=== PATIENT | female | born 1990 | race Caucasian/White ===

== ENCOUNTER 2016-08-17 18:56 | Emergency (ER) | payer OTHER ==
[~2016-08-17] VITALS: Ht 149.9 cm; Wt 63.7 kg
[~2016-08-17 18:56] MED LIST: ACET-1256 PO; ETON1IMP2 INTRAD; IBUP-1050 PO
[2016-08-17 19:00] VITALS: TEMP 37.4; Ht 149.9 cm; Wt 63.7 kg
[2016-08-17] MEDS ORDERED: MoRPHine SULFATE 4 MG/ML 1 ML CARP\\VIAL IV STA (19:16)
[2016-08-17] MEDS ORDERED: SODIUM CHLORIDE 0.9% 1000ML 1,000 ML IV STA (19:16)
[2016-08-17] MEDS ORDERED: ANTI-INFLAMMATORY PO (19:41)
[2016-08-17 19:56] LABS: BASO % 0.5 %; BASO ABS # 0.03 K/uL (0-0.2); COMPLETE YES; EOS % 4.6 %; HEMATOCRIT 38.8 % (37-47); IG% 0.2 %; LYMPH ABS # 1.59 K/uL (1.2-3.4); MEAN CELL VOLUME 86.6 fL (80-100); MEAN CORPUSCULAR HEMOGLOBIN 30.4 pg (25-34); MEAN CORPUSCULAR HGB CONC 35.1 g/dl (32-36); MONO % 9.8 %; NEUT % 57.9 %; PLATELET COUNT 189 K/uL (130-400); RED BLOOD COUNT 4.48 M/uL (4.2-5.4); WHITE BLOOD COUNT 5.89 K/uL (4.8-10.8)
[2016-08-17 19:57] LABS: URINE APPEARANCE CLEAR (CLEAR); URINE BILIRUBIN NEG (NEG); URINE COLOR YELLOW; URINE EPITHELIAL CELL AUTO >30 /lpf (0-5); URINE NITRITE NEG (NEG); URINE SPECIFIC GRAVITY 1.025 (1.000-1.030); UROBILINOGEN NEG (NEG); ZZUR CULT IF INDIC CLEAN CATCH YES
[2016-08-17 20:05] LABS: BUN/CREATININE RATIO 19.4 (10-20); CALCIUM 8.6 mg/dl (8.5-10.1); CREATININE 0.65 mg/dl (0.60-1.20); POTASSIUM 3.9 mmol/L (3.5-5.1)
--- NOTE | 2016-08-17 20:09 | DIAGNOSTIC IMAGING REPORT ---
KUB HISTORY: left flank pain, hx stones COMPARISON: KUB 12/02/2014. Abdomen and pelvis CT 11/26/2014. FINDINGS: The bowel gas pattern is unremarkable. There are no dilated loops of small bowel to suggest an obstruction. There is a punctate stone within the kidneys bilaterally. No left ureteral calculi identified. Calcifications in the deep pelvis likely represent phleboliths. There is a new punctate stone within the right deep pelvis. No pneumoperitoneum or pneumatosis. IMPRESSION: 1. Bilateral nephrolithiasis. 2. No left ureteral calculi. 3. There is a new punctate calcification within the right deep pelvis. This favors a phlebolith rather than a distal right ureteral stone given the patient's history of left flank pain. Electronically signed by: Oc Mcdonald M.D. 08/17/2016 8:07 PM Dictated Date/Time: 08/17/2016 8:04 PM
[2016-08-17 20:10] LABS: MANUAL MICROSCOPIC REQUIRED? NO; REVIEW REQ? YES
--- NOTE | 2016-08-17 20:22 | DIAGNOSTIC IMAGING REPORT ---
RENAL ULTRASOUND HISTORY: left flank pain, hx stones COMPARISON: None. FINDINGS: Right kidney: 10.6 cm. No hydronephrosis. Normal corticomedullary differentiation and cortical thickness. The tip of the lower pole is obscured by overlying bowel gas. Left kidney: 9.6 cm. No hydronephrosis. Normal corticomedullary differentiation and cortical thickness. Bladder: Not well distended. No definite bladder wall thickening. The ureteral jets are not identified. IMPRESSION: No hydronephrosis. Electronically signed by: Oc Mcdonald M.D. 08/17/2016 8:20 PM Dictated Date/Time: 08/17/2016 8:19 PM
[2016-08-17 20:23] LABS: ALB/GLOB RATIO 1.1 (0.9-2)
[2016-08-17 20:29] LABS: URINE MUCUS PRESENT (NONE PRSENT)
[2016-08-17] MEDS ORDERED: NORCO 5/325MG HOME PACK ONE (20:40)
[2016-08-17] MEDS ORDERED: HYDR-5688 PO (20:47)
--- NOTE | 2016-08-17 20:49 | EMERGENCY ROOM VISIT NOTE ---
History First contact with patient: 19:03 Chief Complaint: FLANK PAIN Stated Complaint: SEVERE KIDNEY PAIN/LOWER BACK History of Present Illness The patient is a 26 year old female who presents to the Emergency Room with complaints of left-sided flank pain. The patient reports that she has had pain in her left back in the area of her kidney. This has been ongoing for the past 2 days. She states that she "feels like her kidney is going to pop out." She states the pain is constant and sharp in nature. She has a history of kidney stones greater than 1 year ago. In feels this may be similar, but she is unsure. She denies any associated urinary symptoms, nausea, vomiting, chest pain or shortness of breath. She has not been taking anything at home for the pain. She rates her discomfort an 8/10. Review of Systems A complete 10-point Review of Systems was discussed with the patient, with pertinent positives and negatives listed in the History of Present Illness. All remaining Review of Systems questions can be considered negative unless otherwise specified. Past Medical/Surgical History Medical Problems: (1) 2 (2) No chronic diseases present Family History Cancer Diabetes mellitus Heart disease Hypertension Kidney disease Kidney stones Social History Smoking Status: Former Smoker Alcohol Use: none Drug Use: none Marital Status: in relationship Housing Status: lives with significant other Occupation Status: employed Current/Historical Medications Scheduled PRN Hydrocodone/Acetaminophen 5MG/325MG ([place] 5MG/325MG), 1-2 TABLET PO Q4H PRN for Pain [Anti-Inflammatory], 1 TAB PO DAILY PRN for PRN Allergies Coded Allergies: Penicillins (Verified Allergy, Unknown, ., 08/17/16) Physical Exam Vital Signs Date Time Temp Pulse Resp B/P Pulse Ox O2 Delivery O2 Flow Rate FiO2 08/17/16 20:55 84 16 98/68 98 08/17/16 19:00 37.4 111 16 129/87 99 Room Air Physical Exam VITALS: Vitals are noted on the nurse's note and reviewed by myself. Vital signs stable. GENERAL: This is a 26-year-old female, in no acute distress, nondiaphoretic, well-developed well-nourished. SKIN: Capillary reflex less than 2 seconds. HEART: Regular rate and rhythm without murmurs gallops or rubs. LUNGS: Clear to auscultation bilaterally without wheezes, rales or rhonchi. ABDOMEN: Soft, nontender, no masses or organomegaly. MUSCULOSKELETAL: Mild left CVA tenderness. NEURO: Patient was alert and oriented to person place and time. Medical Decision & Procedures ER Provider Diagnostic Interpretation: KUB IMPRESSION: 1. Bilateral nephrolithiasis. 2. No left ureteral calculi. 3. There is a new punctate calcification within the right deep pelvis. This favors a phlebolith rather than a distal right ureteral stone given the patient's history of left flank pain. RENAL ULTRASOUND IMPRESSION: No hydronephrosis. Laboratory Results 08/17/16 19:25 Red Blood Count 4.48, Mean Corpuscular Volume 86.6, Mean Corpuscular Hemoglobin 30.4, Mean Corpuscular Hemoglobin Concent 35.1, Mean Platelet Volume 11.0, Neutrophils (%) (Auto) 57.9, Lymphocytes (%) (Auto) 27.0, Monocytes (%) (Auto) 9.8, Eosinophils (%) (Auto) 4.6, Basophils (%) (Auto) 0.5, Neutrophils # (Auto) 3.41, Lymphocytes # (Auto) 1.59, Monocytes # (Auto) 0.58, Eosinophils # (Auto) 0.27, Basophils # (Auto) 0.03 08/17/16 19:25 Test 08/17/16 19:25 White Blood Count 5.89 K/uL (4.8-10.8) Red Blood Count 4.48 M/uL (4.2-5.4) Hemoglobin 13.6 g/dL (12.0-16.0) Hematocrit 38.8 % (37-47) Mean Corpuscular Volume 86.6 fL (80-100) Mean Corpuscular Hemoglobin 30.4 pg (25-34) Mean Corpuscular Hemoglobin Concent 35.1 g/dl (32-36) Platelet Count 189 K/uL (130-400) Mean Platelet Volume 11.0 fL (7.4-10.4) Neutrophils (%) (Auto) 57.9 % Lymphocytes (%) (Auto) 27.0 % Monocytes (%) (Auto) 9.8 % Eosinophils (%) (Auto) 4.6 % Basophils (%) (Auto) 0.5 % Neutrophils # (Auto) 3.41 K/uL (1.4-6.5) Lymphocytes # (Auto) 1.59 K/uL (1.2-3.4) Monocytes # (Auto) 0.58 K/uL (0.11-0.59) Eosinophils # (Auto) 0.27 K/uL (0-0.5) Basophils # (Auto) 0.03 K/uL (0-0.2) RDW Standard Deviation 40.4 fL (36.4-46.3) RDW Coefficient of Variation 12.6 % (11.5-14.5) Immature Granulocyte % (Auto) 0.2 % Immature Granulocyte # (Auto) 0.01 K/uL (0.00-0.02) Urine Color YELLOW Urine Appearance CLEAR (CLEAR) Urine pH 7.0 (4.5-7.5) Urine Specific [place] 1.025 (1.000-1.030) Urine Protein NEG (NEG) Urine Glucose (UA) NEG (NEG) Urine Ketones NEG (NEG) Urine Occult Blood NEG (NEG) Urine Nitrite NEG (NEG) Urine Bilirubin NEG (NEG) Urine Urobilinogen NEG (NEG) Urine Leukocyte Esterase MODERATE (NEG) Urine WBC (Auto) 5-10 /hpf (0-5) Urine RBC (Auto) 5-10 /hpf (0-4) Urine Hyaline Casts (Auto) 1-5 /lpf (0-5) Urine Epithelial Cells (Auto) >30 /lpf (0-5) Urine Bacteria (Auto) 1+ (NEG) Urine Renal Epithelial Cells /lpf (0-5) Urine Mucus PRESENT (NONE PRSENT) Urine Test NEG (NEG) Anion Gap 8.0 mmol/L (3-11) Est Creatinine Clear Calc Drug Dose 105.5 ml/min Estimated GFR () 141.0 Estimated GFR (Non- 121.7 BUN/Creatinine Ratio 19.4 (10-20) Calcium Level 8.6 mg/dl (8.5-10.1) Total Bilirubin 0.5 mg/dl (0.2-1) Aspartate Amino Transf (AST/SGOT) 14 U/L (15-37) Alanine Aminotransferase (ALT/SGPT) 20 U/L (12-78) Alkaline Phosphatase 77 U/L (45-117) Total Protein 6.8 gm/dl (6.4-8.2) Albumin 3.6 gm/dl (3.4-5.0) Globulin 3.2 gm/dl (2.5-4.0) Albumin/Globulin Ratio 1.1 (0.9-2) Medications Administered Medications (Trade) Dose Ordered Sig/Denilson Route Start Time Stop Time Status Last Admin Dose Admin Sodium Chloride (Nss 1000ml) 1,000 ml @ 999 mls/hr Q1H1M STAT IV 08/17/16 19:16 08/17/16 20:16 DC 08/17/16 19:34 999 MLS/HR Morphine Sulfate (MoRPHine SULFATE INJ) 4 mg NOW STAT IV 08/17/16 19:16 08/17/16 19:17 DC 08/17/16 19:35 4 MG Acetaminophen/ Hydrocodone Bitart ([place] 5/325mg Home Pack) 1 homepack [employer] ONCE .ROUTE 08/17/16 20:40 08/17/16 20:41 DC 08/17/16 21:00 1 HOMEPACK Medical Decision Differential diagnosis includes renal calculus, pyelonephritis, feels: Pain, gastroenteritis, colitis, among others. The patient was evaluated as above. Labs were drawn and IV access was obtained. Imaging studies were performed and read by radiology as above. The patient was medicated with 4 mg morphine IV for pain. The patient was reassessed multiple times during their stay in the emergency department and remained in stable condition. The patient is a 26-year-old female who presents today complaining of left flank pain. Labs revealed no leukocytosis, anemia or concerning electrolyte abnormality. Urinalysis was suggestive of infection versus contamination. Urine was negative. Ultrasound and KUB were negative for any presence of stones. I feel the patient's pain is most likely musculoskeletal. Her urinalysis was adjusted of contamination and certainly does not appear to be consistent with pyelonephritis. This will be sent for culture. The patient was given a short course of pain medication. She will return for worsening symptoms. Otherwise, she will follow-up with her primary care provider. Based on the patient's presentation, lab results, and imaging studies, I feel the patient is stable for outpatient treatment. Discharge instructions were reviewed with the patient. The patient verbalized understanding of my assessment and treatment plan and was discharged home in good condition. [place] Drug Monitoring Program Search Results: patient reviewed within database, no issues identified Impression Primary Impression: Left flank pain Departure Information Dispostion Home / Self-Care Condition GOOD Prescriptions Hydrocodone/Acetaminophen 5MG/325MG ([place] 5MG/325MG) Tab 1-2 TABLET PO Q4H Y for Pain, #12 TAB For Initial Treatment Prov: Carmita Kirby PA-C 08/17/16 Referrals Cl Connors M.D. (PCP) Patient Instructions My [facility] Additional Instructions You have been treated in the Emergency Department for Back Pain. You have received pain medicine in the emergency department which impairs your ability to operate a vehicle. It is illegal for you to drive after receiving these medicines. You have been prescribed [place] to be used for pain control. This is a narcotic medication. You cannot drive or consume alcohol while on this medicine. This medicine should only be used for pain that cannot be controlled with over-the- counter pain medicines. For pain control, you can use the following [id number] medicines (if >12 yo): - Regular strength (325mg/tab) Tylenol (acetaminophen) 2 tabs every 4-6 hours as needed. Do not exceed 12 tablets in a 24 hour period. Avoid taking more than 4 grams (4000 mg) of Tylenol per day. This includes any other sources of acetaminophen you may take on a regular basis. - Regular strength (200 mg/tab) Advil (ibuprofen) 1-2 tabs every 4-6 hours as needed. Do not exceed a dose of 3200 mg per day. You may apply a heating pad to the area of discomfort. You should follow-up with your primary care provider within one week for further evaluation of these symptoms. Return to the Emergency Department if your current symptoms worsen despite treatment course outlined above, or if you develop any new/concerning symptoms.
[2016-08-17 20:55] VITALS: BP 98/68; PULSE 84; O2SAT 98
== END 2016-08-17 21:04 | disposition home or self-care (01) ==
LOC: C.EDB 18:57
DX: R10.9 Unspecified abdominal pain (principal); N20.0 Calculus of kidney; Z87.891 Personal history of nicotine dependence; Z83.3 Family history of diabetes mellitus; Z82.49 Family history of ischemic heart disease and other diseases of the circulatory system; Z84.1 Family history of disorders of kidney and ureter; Z79.1 Long term (current) use of non-steroidal anti-inflammatories (NSAID)

== ENCOUNTER 2017-08-24 12:53 | Emergency (ER) | payer SELFPAY ==
[~2017-08-24] VITALS: Ht 149.9 cm; Wt 70.0 kg
[~2017-08-24 12:53] MED LIST changes: -ACET-1256 PO; +ANTI-INFLAMMATORY PO; -ETON1IMP2 INTRAD; -IBUP-1050 PO
[2017-08-24 12:57] VITALS: TEMP 36.8; Ht 149.9 cm; Wt 70.0 kg
[2017-08-24] MEDS ORDERED: SODIUM CHLORIDE 0.9% 1000ML 1,000 ML IV STA (13:28)
[2017-08-24] MEDS ORDERED: MoRPHine SULFATE 4 MG/ML 1 ML CARP\\VIAL IV STA (13:35)
[2017-08-24] MEDS ORDERED: ONDANSETRON INJ 2 MG/ML 2 ML VIAL IV STA ×2 (13:35→17:04)
[2017-08-24 13:50] LABS: BASO % 0.5 %; BASO ABS # 0.05 K/uL (0-0.2); EOS % 3.5 %; EOS ABS # 0.36 K/uL (0-0.5); HEMATOCRIT 43.2 % (37-47); HEMOGLOBIN 14.9 g/dL (12.0-16.0); IG# 0.02 K/uL (0.00-0.02); LYMPH % 28.7 %; LYMPH ABS # 2.94 K/uL (1.2-3.4); MEAN CELL VOLUME 89.6 fL (80-100); MEAN CORPUSCULAR HEMOGLOBIN 30.9 pg (25-34); MEAN CORPUSCULAR HGB CONC 34.5 g/dl (32-36); MEAN PLATELET VOLUME 10.4 fL (7.4-10.4); MONO % 5.7 %; MONO ABS # 0.58 K/uL (0.11-0.59); NEUT % 61.4 %; PLATELET COUNT 224 K/uL (130-400); RED CELL DISTRIBUTION WIDTH CV 12.2 % (11.5-14.5); RED CELL DISTRIBUTION WIDTH SD 39.8 fL (36.4-46.3); WHITE BLOOD COUNT 10.25 K/uL (4.8-10.8)
[2017-08-24 14:02] VITALS: O2SAT 100
[2017-08-24 14:07] LABS: ALBUMIN 4.3 gm/dl (3.4-5.0); ALT/SGPT 25 U/L (12-78); AST/SGOT 16 U/L (15-37); BLOOD UREA NITROGEN 12 mg/dl (7-18); CALCIUM 9.2 mg/dl (8.5-10.1); CARBON DIOXIDE 31 mmol/L (21-32); CREATININE 0.62 mg/dl (0.60-1.20); GLUCOSE 80 mg/dl (70-99); LIPASE 124 U/L (73-393); POTASSIUM 3.2 mmol/L (3.5-5.1); SODIUM 136 mmol/L (136-145)
[2017-08-24 14:09] LABS: ALKALINE PHOSPHATASE 85 U/L (45-117); TOTAL PROTEIN 8.5 gm/dl (6.4-8.2)
--- NOTE | 2017-08-24 15:05 | DIAGNOSTIC IMAGING REPORT ---
ULTRASOUND RIGHT UPPER QUADRANT ABDOMEN CLINICAL HISTORY: Right upper quadrant abdominal pain. COMPARISON STUDY: Abdominal CT dated 11/26/2014. TECHNIQUE: Real-time, grayscale, and color flow sonography of the right upper quadrant of the abdomen was performed. Images are reviewed in the transverse and longitudinal planes. FINDINGS: Liver: The liver is normal in size and echotexture. There is no intrahepatic biliary ductal dilatation. The main portal vein is patent. Gallbladder: The gallbladder is normal in appearance. No gallstones are identified. There is no gallbladder wall thickening or pericholecystic fluid. A sonographic Whiting's sign is reportedly absent. The common bile duct measures up to 0.5 cm in diameter. Pancreas: Visualized portions of the pancreatic head and body are normal in appearance. Right kidney: Survey images of the right kidney demonstrate normal size and echotexture. There is no hydronephrosis. Ascites: None. IMPRESSION: Unremarkable sonographic assessment of the right upper quadrant. No gallstones are identified. Electronically signed by: Kenyon Allen M.D. 08/24/2017 3:04 PM Dictated Date/Time: 08/24/2017 3:03 PM
--- NOTE | 2017-08-24 15:14 | EMERGENCY ROOM VISIT NOTE ---
History First contact with patient: 13:25 Chief Complaint: ABDOMINAL PAIN Stated Complaint: SEVERE RUQ PAIN, DISCOLORED STOOL, FEVER, VOMITING History of Present Illness The patient is a 27 year old female who presents to the Emergency Room via private vehicle accompanied by mother and refer by family doctor with complaints of "severe right upper quadrant pain, discolored stool, fever, vomiting". The patient was asked to us today with postprandial right upper quadrant abdominal pain that began earlier this week. She states that after she eats food she developed right upper quadrant abdominal pain followed by emesis. This is of new onset. She also notes clear-colored stools. Her last fever was on Monday and was 102.8F. She states that she was seen and her family doctor's office today and referred here. Review of Systems A complete 10-point Review of Systems was discussed with the patient, with pertinent positives and negatives listed in the History of Present Illness. All remaining Review of Systems questions can be considered negative unless otherwise specified. Past Medical/Surgical History Medical Problems: (1) 2 (2) No chronic diseases present Family History Cancer Diabetes mellitus Heart disease Hypertension Kidney disease Kidney stones Social History Smoking Status: Current Every Day Smoker Alcohol Use: none Drug Use: none Marital Status: in relationship Housing Status: lives with significant other Occupation Status: employed Current/Historical Medications Scheduled Citalopram Hydrobromide (Celexa), 1 TAB PO DAILY Omeprazole (Omeprazole), 2 TAB PO DAILY Ondasetron Odt (Zofran Odt), 4 MG SL Q6H Scheduled PRN [id number]-[id number]-Ro (Vicks Nyquil Cold & Flu), 1 DOSE PO HS PRN for COLD, SLEEP Oxycodone Ir (Roxicodone Ir), 1-2 TAB PO Q4H PRN for Pain Physical Exam Vital Signs Date Time Temp Pulse Resp B/P (MAP) Pulse Ox O2 Delivery O2 Flow Rate FiO2 08/24/17 18:38 69 16 104/61 100 08/24/17 17:09 72 18 106/58 98 Room Air 08/24/17 15:41 74 18 113/70 99 Room Air 08/24/17 14:06 100 08/24/17 14:04 94 16 103/66 98 Room Air 08/24/17 14:02 100 Room Air 08/24/17 12:57 36.8 96 20 135/81 100 Room Air Physical Exam VITAL SIGNS - Vital signs and nursing notes were reviewed. Stable. Afebrile. GENERAL -27-year-old female appearing her stated age who is in no acute distress. Communicates well with provider and answers questions appropriately. SKIN - Without rashes. No petechial or meningeal rash. HEAD - NC/AT. EYES - Sclera anicteric. EARS - No deformities of external structures noted on gross examination bilaterally. External auditory canals without discharge or otorrhea. Tympanic membranes pearly duffy without retraction or bulging. No fluid or purulent material visualized behind the TM. Handle of malleus, umbo, cone of light, pars tensa/flaccid all easily visualized. NOSE - Midline and without cyanosis. No epistaxis or purulent drainage noted. MOUTH/OROPHARYNX - Without perioral cyanosis. LUNGS - Chest wall symmetric without accessory muscle use, intercostals retractions, or central cyanosis. Normal vesicular breath sounds CTA B/L. No wheezes, rales, or rhonchi appreciated. CARDIAC - RRR with S1/S2. No murmur, rubs, or gallops appreciated. ABDOMEN - Abdominal contour normal without pulsations or visible masses. BS normoactive all four quadrants. There is right upper quadrant tenderness without positive Whiting sign. No palpable masses, hepatosplenomegaly, or ascites noted. Medical Decision & Procedures ER Provider Diagnostic Interpretation: ULTRASOUND RIGHT UPPER QUADRANT ABDOMEN CLINICAL HISTORY: Right upper quadrant abdominal pain. COMPARISON STUDY: Abdominal CT dated 11/26/2014. TECHNIQUE: Real-time, grayscale, and color flow sonography of the right upper quadrant of the abdomen was performed. Images are reviewed in the transverse and longitudinal planes. FINDINGS: Liver: The liver is normal in size and echotexture. There is no intrahepatic biliary ductal dilatation. The main portal vein is patent. Gallbladder: The gallbladder is normal in appearance. No gallstones are identified. There is no gallbladder wall thickening or pericholecystic fluid. A sonographic Whiting's sign is reportedly absent. The common bile duct measures up to 0.5 cm in diameter. Pancreas: Visualized portions of the pancreatic head and body are normal in appearance. Right kidney: Survey images of the right kidney demonstrate normal size and echotexture. There is no hydronephrosis. Ascites: None. IMPRESSION: Unremarkable sonographic assessment of the right upper quadrant. No gallstones are identified. Electronically signed by: Kenyon Allen M.D. 08/24/2017 3:04 PM Dictated Date/Time: 08/24/2017 3:03 PM Laboratory Results 08/24/17 13:30 Red Blood Count 4.82, Mean Corpuscular Volume 89.6, Mean Corpuscular Hemoglobin 30.9, Mean Corpuscular Hemoglobin Concent 34.5, Mean Platelet Volume 10.4, Neutrophils (%) (Auto) 61.4, Lymphocytes (%) (Auto) 28.7, Monocytes (%) (Auto) 5.7, Eosinophils (%) (Auto) 3.5, Basophils (%) (Auto) 0.5, Neutrophils # (Auto) 6.30, Lymphocytes # (Auto) 2.94, Monocytes # (Auto) 0.58, Eosinophils # (Auto) 0.36, Basophils # (Auto) 0.05 08/24/17 13:30 Test 08/24/17 13:25 08/24/17 13:30 Urine Color YELLOW Urine Appearance CLEAR (CLEAR) Urine pH 8.0 (4.5-7.5) Urine Specific [place] 1.013 (1.000-1.030) Urine Protein NEG (NEG) Urine Glucose (UA) NEG (NEG) Urine Ketones NEG (NEG) Urine Occult Blood NEG (NEG) Urine Nitrite NEG (NEG) Urine Bilirubin NEG (NEG) Urine Urobilinogen NEG (NEG) Urine Leukocyte Esterase TRACE (NEG) Urine WBC (Auto) 1-5 /hpf (0-5) Urine RBC (Auto) 0-4 /hpf (0-4) Urine Hyaline Casts (Auto) 0 /lpf (0-5) Urine Epithelial Cells (Auto) >30 /lpf (0-5) Urine Bacteria (Auto) NEG (NEG) Urine Test NEG (NEG) White Blood Count 10.25 K/uL (4.8-10.8) Red Blood Count 4.82 M/uL (4.2-5.4) Hemoglobin 14.9 g/dL (12.0-16.0) Hematocrit 43.2 % (37-47) Mean Corpuscular Volume 89.6 fL (80-100) Mean Corpuscular Hemoglobin 30.9 pg (25-34) Mean Corpuscular Hemoglobin Concent 34.5 g/dl (32-36) Platelet Count 224 K/uL (130-400) Mean Platelet Volume 10.4 fL (7.4-10.4) Neutrophils (%) (Auto) 61.4 % Lymphocytes (%) (Auto) 28.7 % Monocytes (%) (Auto) 5.7 % Eosinophils (%) (Auto) 3.5 % Basophils (%) (Auto) 0.5 % Neutrophils # (Auto) 6.30 K/uL (1.4-6.5) Lymphocytes # (Auto) 2.94 K/uL (1.2-3.4) Monocytes # (Auto) 0.58 K/uL (0.11-0.59) Eosinophils # (Auto) 0.36 K/uL (0-0.5) Basophils # (Auto) 0.05 K/uL (0-0.2) RDW Standard Deviation 39.8 fL (36.4-46.3) RDW Coefficient of Variation 12.2 % (11.5-14.5) Immature Granulocyte % (Auto) 0.2 % Immature Granulocyte # (Auto) 0.02 K/uL (0.00-0.02) Anion Gap 3.0 mmol/L (3-11) Est Creatinine Clear Calc Drug Dose 115.0 ml/min Estimated GFR () 142.2 Estimated GFR (Non- 122.7 BUN/Creatinine Ratio 19.1 (10-20) Calcium Level 9.2 mg/dl (8.5-10.1) Magnesium Level 2.1 mg/dl (1.8-2.4) Total Bilirubin 0.5 mg/dl (0.2-1) Direct Bilirubin < 0.1 mg/dl (0-0.2) Aspartate Amino Transf (AST/SGOT) 16 U/L (15-37) Alanine Aminotransferase (ALT/SGPT) 25 U/L (12-78) Alkaline Phosphatase 85 U/L (45-117) Total Protein 8.5 gm/dl (6.4-8.2) Albumin 4.3 gm/dl (3.4-5.0) Lipase 124 U/L (73-393) Medications Administered Medications (Trade) Dose Ordered Sig/Denilson Route Start Time Stop Time Status Last Admin Dose Admin Sodium Chloride 1,000 ml @ 999 mls/hr Q1H1M STAT IV 08/24/17 13:28 08/24/17 14:28 DC 08/24/17 13:58 999 MLS/HR Morphine Sulfate (MoRPHine SULFATE INJ) 4 mg NOW STAT IV 08/24/17 13:35 08/24/17 13:36 DC 08/24/17 13:59 4 MG Ondansetron HCl (Zofran Inj) 4 mg NOW STAT IV 08/24/17 13:35 08/24/17 13:36 DC 08/24/17 13:59 4 MG Ondansetron HCl (Zofran Inj) 4 mg NOW STAT IV 08/24/17 17:04 08/24/17 17:05 DC 08/24/17 17:10 4 MG Acetaminophen (Tylenol Tab) 500 mg NOW STAT PO 08/24/17 17:04 08/24/17 17:05 DC 08/24/17 17:10 500 MG Medical Decision Patient was seen and evaluated as above. She presents to us today with right upper quadrant abdominal pain that is worse after eating. She is nontoxic on exam. There is right upper quadrant abdominal tenderness upon my examination. Her history certainly is concerning for that of gallbladder etiology. IV access was initiated, and the above workup was performed. She was given morphine and Zofran for pain and nausea. CBC completely normal. Metabolic panel reveals potassium low at 3.2. No evidence of kidney or liver failure. Protein slightly high at 8.5. Urinalysis reveals high pH, trace leukocytes and greater than 30 epithelial cells. Urine test is negative. Gallbladder ultrasound normal. I suspect she is likely experiencing biliary colic, but also could be experiencing reflux. The patient appears well to be managed in the outpatient setting given her negative workup here and I do recommend a HIDA scan. Because it's towards the end of the week, and the patient's amount of pain I thought that perhaps obtaining this sooner rather than later in the outpatient setting would be warranted the patient did attempt to contact her family doctor. This was without success. I then discussed the case with our GI specialist here, Dr. García. He recommended beginning a PPI such as omeprazole 40 mg daily, and then have the patient follow-up in 2 weeks. If she is not feeling any better and upper endoscopy is recommended. I discussed medical versus risk of obtaining HIDA scan with him, and it appears that this is perhaps not the best test at this time. The patient did undergo a by mouth fluid trial here, and after another round of Zofran for nausea and was able tolerate by mouth fluid as well as food. She will be discharged home with a short course of Zofran, oxycodone, and omeprazole. It is important to note that in regard to the QT prolonging medications that she is not currently taking the Celexa of which she notes she is prescribed. I did talk with her about the QT prolongation risk. She was educated upon management, educated upon worrisome symptoms in which to return, was thoroughly invited back to the emergency department for symptoms persist or worsen, and was discharged home in good condition. There are no red flags identified and the [place] drug monitoring system. In the evaluation and treatment of this patient the following differential diagnoses were entertained: Biliary colic, acute cholecystitis, ascending cholangitis, gastritis, acid reflux, gastric ulcer, among others. Impression Primary Impression: Right upper quadrant abdominal pain Additional Impression: Hypokalemia Departure Information Dispostion Home / Self-Care Condition GOOD Prescriptions Omeprazole (OMEPRAZOLE) 20 Mg Tab 2 TAB PO DAILY for 30 Days, #60 TAB 1 Refill Prov: oTbin Mehta PA-C 08/24/17 Oxycodone Ir (Roxicodone Ir) 5 Mg Tab 1-2 TAB PO Q4H Y for Pain, #20 TAB For Initial Treatment Prov: Tobin Mehta PA-C 08/24/17 Ondasetron Odt (ZOFRAN ODT) 4 Mg Tab 4 MG SL Q6H for Nausea, #20 TAB Prov: Tobin Mehta PA-C 08/24/17 Referrals Cl Connors M.D. (PCP) Davin García, DO Patient Instructions My [facility] Additional Instructions You have been treated in the Emergency Department your Abdominal Pain. Laboratory results and imaging studies have ruled out any emergent causes for your abdominal pain which would warrant admission or surgery. You have been prescribed Oxy IR to be used for pain control. This is a narcotic medication. You cannot drive or consume alcohol while on this medicine. This medicine should only be used for pain that cannot be controlled with over-the- counter pain medicines. You have been prescribed Zofran to be used for any nausea or vomiting. Take as prescribed. Omeprezole 40mg daily x 4 weeks. These medications increase your risk was not as QT prolongation. I do recommend taking the Zofran ONLY as needed for nausea. This does not need to be taken every 6 hours, rather only when you are nauseous. For pain control, you can use the following [id number] medicines (if >12 yo): - Regular strength (325mg/tab) Tylenol (acetaminophen) 2 tabs every 4-6 hours as needed. Do not exceed 12 tablets in a 24 hour period. Avoid taking more than 3 grams (3000 mg) of Tylenol per day. This includes any other sources of acetaminophen you may take on a regular basis. PLEASE NO NSAIDS LIKE IBUPROFEN OR ASPIRIN Drink plenty of water and stay well hydrated. As with any trip to the Emergency Department, you should follow-up with your Primary Care Provider from today's visit. Return to the emergency department if your symptoms persist despite treatment plan outlined above or if the following symptoms occur: increased fevers, chills , worsening nausea/vomiting, blood in your stool or urine. Problem Qualifiers
[2017-08-24] MEDS ORDERED: DEXT1LIQ36 PO (15:56)
[2017-08-24] MEDS ORDERED: CITA10TA8 PO (15:56)
[2017-08-24] MEDS ORDERED: ACETAMINOPHEN 500 MG TAB PO STA (17:04)
[2017-08-24] MEDS ORDERED: OXYC1TAB3 PO (17:59)
[2017-08-24] MEDS ORDERED: ONDA4TAB10 SL (17:59)
[2017-08-24] MEDS ORDERED: OMEP20TA PO (17:59)
[2017-08-24 18:38] VITALS: BP 104/61; PULSE 69; O2SAT 100
== END 2017-08-24 18:40 | disposition home or self-care (01) ==
LOC: C.EDB 12:54 → C.EDA 18:40
DX: R10.11 Right upper quadrant pain (principal); E87.6 Hypokalemia; Z83.3 Family history of diabetes mellitus; Z82.49 Family history of ischemic heart disease and other diseases of the circulatory system; F17.200 Nicotine dependence, unspecified, uncomplicated

== ENCOUNTER 2022-01-29 05:33 | Inpatient (IN) ==
[2022-01-29] MEDS ORDERED: ONDANSETRON INJ 2 MG/ML 2 ML VIAL IV STA ×2 (05:49→07:19)
[2022-01-29] MEDS ORDERED: SODIUM CHLORIDE 0.9% 1000ML 1,000 ML IV SCH (06:00)
[2022-01-29] MEDS: MoRPHine SULFATE 2 MG/ML CARP IV PRN ×2 (06:19→10:47)
[2022-01-29 06:37] LABS: Basophils # (auto) 0.02 K/uL (0-0.2); Basophils % (auto) 0.1 %; Eosinophils # (auto) 0.03 K/uL (0-0.5); Eosinophils % (auto) 0.2 %; Hematocrit (blood only) 37.8 % (37-47); Hemoglobin 12.6 g/dL (12.0-16.0); Immature Granulocytes # (auto) 0.04 K/uL (0.00-0.02); Immature Granulocytes % (auto) 0.3 %; Lymphocytes # (auto) 1.03 K/uL (1.2-3.4); Lymphocytes % (auto) 7.3 %; Mean Corpuscular Hemoglobin 30.5 pg (25-34); Mean Corpuscular Hgb Conc 33.3 g/dL (32-36); Mean Corpuscular Volume 91.5 fL (80-100); Mean Platelet Volume 11.2 fL (7.4-10.4); Monocytes % (auto) 4.9 %; Neutrophils # (auto) 12.35 K/uL (1.4-6.5); Neutrophils % (auto) 87.2 %; Platelet Count 239 K/uL (130-400); RDW Coefficient of Variation 12.8 % (11.5-14.5); RDW Standard Deviation 43.2 fL (36.4-46.3); Red Blood Count 4.13 M/uL (4.2-5.4); White Blood Count 14.17 K/uL (4.8-10.8)
--- NOTE | 2022-01-29 06:45 | Emergency Department Note ---
History of Present Illness General Chief complaint: Abdominal Pain Stated complaint: GULLBLADDER TAKEN OUT - MAJOR PAIN Time Seen by Provider: 01/29/22 06:30 Source: patient and family ( who is at the bedside) Mode of arrival: EMS Limitations: no limitations History of Present Illness Maximum Pain Intensity: 9 This patient is a 31-year-old female comes in with left upper quadrant abdominal pain. She had her gallbladder done laparoscopically as an outpatient yesterday at [facility] by Dr. Cartwright. She has been using Candice codon 5 mg she has had a total of 3 she continues to have severe pain. Hurts worse when she breathes or moves. She has had no fever or chills. She has not had the COVID-vaccine or re cent test she tells me. She has had nausea and vomited x1. No recent bowel movement. No dysuria hematuria denies as she has had a tubal ligation. She is allergic to vancomycin and penicillin which she says penicillin causes throat swelling. She had clindamycin during surgery she tells me. Home Medications Medication Instructions Recorded Confirmed Type vits no.124-ferrous fum 800 tab PO DAILY 01/15/20 01/15/20 History 27 mg iron-folic acid 800 mcg tablet ( Vitamin) promethazine 25 mg tablet 25 mg PO TID PRN #20 tab 11/29/21 Rx Allergies Allergy/AdvReac Type Severity Reaction Status Date / Time Penicillins Allergy Unknown . Verified 06/11/19 23:17 Past Med/Surg History Medical History (Updated 01/29/22 @ 11:40 by Tito Stein MD) No significant past medical history Surgical History H/O removal of cyst Family History Other No pertinent family history Social History Smoking Status: Never smoker Tobacco Type: Cigarettes Second Hand Exposure: Yes; Hx Alcohol Use: No Hx Substance Use: No Preferred Language: [place] marital status: Feels Safe at Home: Yes Review of Systems A total of 10 systems reviewed and were otherwise negative Physical Exam Vital Signs Vital Signs - 24 hr 01/29/22 05:37 01/29/22 06:04 01/29/22 07:43 Temperature 36.9 C Temperature Source Temporal Artery Scan Pulse Rate 58 L Pulse Rate [Finger] 50 L 61 Pulse Rate from SpO2 Sensor Pulse Rhythm [Finger] Regular Respiratory Rate 20 18 18 Respiratory Effort / Characteristics Non-Labored Spontaneous Respiratory Depth Normal Blood Pressure 133/71 Blood Pressure [Left Arm] 116/64 91/63 L Blood Pressure Mean 91 Blood Pressure Mean [Left Arm] 81 72 Blood Pressure Position Sitting Blood Pressure Position [Left Arm] Semi-fowlers Pulse Oximetry 99 100 98 Oxygen Delivery Method Room Air Room Air Room Air Sepsis Recent Fever Within 48 Hours No Sepsis New/Unexplained Change in Mental Status N/A Sepsis Action Taken by Nursing No Action Required 01/29/22 07:49 01/29/22 08:00 01/29/22 08:10 Temperature Temperature Source Pulse Rate 57 L 41 L 60 Pulse Rate [Finger] Pulse Rate from SpO2 Sensor 60 42 L 59 L Pulse Rhythm [Finger] Respiratory Rate 14 16 15 Respiratory Effort / Characteristics Respiratory Depth Blood Pressure 133/75 Blood Pressure [Left Arm] Blood Pressure Mean 94 Blood Pressure Mean [Left Arm] Blood Pressure Position Blood Pressure Position [Left Arm] Pulse Oximetry 100 100 99 Oxygen Delivery Method Sepsis Recent Fever Within 48 Hours Sepsis New/Unexplained Change in Mental Status Sepsis Action Taken by Nursing 01/29/22 08:30 01/29/22 09:00 01/29/22 09:30 Temperature Temperature Source Pulse Rate 44 L 48 L 48 L Pulse Rate [Finger] 48 L Pulse Rate from SpO2 Sensor 44 L 48 L 48 L Pulse Rhythm [Finger] Respiratory Rate 16 16 16 Respiratory Effort / Characteristics Respiratory Depth Normal Blood Pressure 125/70 132/78 124/77 Blood Pressure [Left Arm] 124/77 Blood Pressure Mean 88 96 92 Blood Pressure Mean [Left Arm] 92 Blood Pressure Position Blood Pressure Position [Left Arm] Pulse Oximetry 99 100 100 Oxygen Delivery Method Room Air Sepsis Recent Fever Within 48 Hours Sepsis New/Unexplained Change in Mental Status Sepsis Action Taken by Nursing 01/29/22 10:00 01/29/22 10:30 01/29/22 11:00 Temperature Temperature Source Pulse Rate 55 L 51 L 48 L Pulse Rate [Finger] Pulse Rate from SpO2 Sensor 55 L 49 L 49 L Pulse Rhythm [Finger] Respiratory Rate 20 19 15 Respiratory Effort / Characteristics Respiratory Depth Blood Pressure 116/80 110/78 Blood Pressure [Left Arm] Blood Pressure Mean 92 88 Blood Pressure Mean [Left Arm] Blood Pressure Position Blood Pressure Position [Left Arm] Pulse Oximetry 100 100 100 Oxygen Delivery Method Sepsis Recent Fever Within 48 Hours Sepsis New/Unexplained Change in Mental Status Sepsis Action Taken by Nursing 01/29/22 11:01 01/29/22 11:30 Temperature Temperature Source Pulse Rate 44 L 48 L Pulse Rate [Finger] Pulse Rate from SpO2 Sensor 44 L 47 L Pulse Rhythm [Finger] Respiratory Rate 20 16 Respiratory Effort / Characteristics Respiratory Depth Blood Pressure 114/76 109/72 Blood Pressure [Left Arm] Blood Pressure Mean 88 84 Blood Pressure Mean [Left Arm] Blood Pressure Position Blood Pressure Position [Left Arm] Pulse Oximetry 100 98 Oxygen Delivery Method Room Air Sepsis Recent Fever Within 48 Hours Sepsis New/Unexplained Change in Mental Status Sepsis Action Taken by Nursing General: Well developed well nourished comfortable appearing young female who appears in no acute respiratory distress, breathing comfortably on room air. Normal speech HEENT: Normal cephalic atraumatic. Pupils are equal round and reactive to light. Extraocular movements are intact. Oropharynx is pink with moist mucous membranes. No swelling of the mouth lips or tongue. Neck: Supple with a midline trachea. No meningeal signs or stiffness, no JVD or bruits. No Stridor. Chest: Clear to auscultation bilaterally. No wheezes or rhonchi. No increased work of breathing. Heart: Regular rate and rhythm without murmurs or gallops. Abdomen: Soft, mildly tender diffusely but mostly in the left upper abdomen. Nondistended without rebound guarding or rigidity. Intact incisions from yesterday's laparoscopic surgery. There is a mild amount of blood soaked gauze in the central incision but no active bleeding Extremities: No cyanosis clubbing or edema. No calf tenderness or assymetry Spine/Back. Non tender to palpation. No CVA tenderness Skin: Good turgor without rashes. Neurologic exam: Cranial nerves two through 12 are intact. Motor and sensation are intact and symmetrical throughout. Course Administered Medications Morphine Sulfate (Morphine Sulfate 2 Mg/Ml Carp) 2 mg IV Q30M PRN PRN Reason: Pain Stop: 02/12/22 05:49 Last Admin: 01/29/22 10:47 Dose: 2 mg Documented by: [id number] Admin: 01/29/22 06:19 Dose: 2 mg Documented by: [id number] Discontinued Medications Hydromorphone HCl (Hydromorphone Inj 0.5 Mg/0.5 Ml Syr) 0.5 mg IV NOW STA Stop: 01/29/22 07:20 Last Admin: 01/29/22 07:22 Dose: 0.5 mg Documented by: [id number] Sodium Chloride (Nss 1000ml) 1,000 mls @ 999 mls/hr IV .Q1H1M CLARA Stop: 01/29/22 07:00 Last Infusion: 01/29/22 08:08 Dose: 0 mls/hr Documented by: [id number] Admin: 01/29/22 06:12 Dose: 999 mls/hr Documented by: [id number] Ioversol (Optiray 320 100ml) 93 ml IV ONCE ONE Stop: 01/29/22 07:34 Last Admin: 01/29/22 07:38 Dose: 93 ml Documented by: [id number] Ketorolac Tromethamine (Ketorolac Tromethamine 15 Mg/Ml Vial) 10 mg IV NOW ONE Stop: 01/29/22 08:07 Last Admin: 01/29/22 08:10 Dose: 10 mg Documented by: [id number] Ondansetron HCl (Ondansetron Inj 2 Mg/Ml 2 Ml Vial) 4 mg IV NOW STA Stop: 01/29/22 05:50 Last Admin: 01/29/22 06:19 Dose: 4 mg Documented by: [id number] Ondansetron HCl (Ondansetron Inj 2 Mg/Ml 2 Ml Vial) 4 mg IV NOW STA Stop: 01/29/22 07:20 Last Admin: 01/29/22 07:24 Dose: 4 mg Documented by: [id number] Medical Decision Making Differential Diagnosis Postop pain, postop complication, bowel obstruction, bile leak, infection, bleeding, anemia, , COVID, electrolyte or metabolic Medical Records Attestation: I reviewed the patient's medical records. Home Medications Current Medication List: was personally reviewed by me Laboratory Data Attestation: I reviewed the patient's lab results. Result diagrams: 01/29/22 06:11 01/29/22 06:11 Lab Results 01/29/22 01/29/22 01/29/22 Range/Units 06:11 06:11 06:44 WBC 14.17 H (4.8-10.8) K/uL RBC 4.13 L (4.2-5.4) M/uL Hgb 12.6 (12.0-16.0) g/dL Hct 37.8 (37-47) % MCV 91.5 (80-100) fL MCH 30.5 (25-34) pg MCHC 33.3 (32-36) g/dL RDW Std Deviation 43.2 (36.4-46.3) fL RDW Coeff of Tres 12.8 (11.5-14.5) % Plt Count 239 (130-400) K/uL MPV 11.2 H (7.4-10.4) fL Immature Gran % (Auto) 0.3 % Neut % (Auto) 87.2 % Lymph % (Auto) 7.3 % Piatt % (Auto) 4.9 % Eos % (Auto) 0.2 % Baso % (Auto) 0.1 % Neut # (Auto) 12.35 H (1.4-6.5) K/uL Lymph # (Auto) 1.03 L (1.2-3.4) K/uL Piatt # (Auto) 0.70 H (0.11-0.59) K/uL Eos # (Auto) 0.03 (0-0.5) K/uL Baso # (Auto) 0.02 (0-0.2) K/uL Immature Gran # (Auto) 0.04 H (0.00-0.02) K/uL Sodium 136 (136-145) mmol/L Potassium 3.5 (3.5-5.1) mmol/L Chloride 103 (98-107) mmol/L Carbon Dioxide 27 (21-32) mmol/L Anion Gap 6 (3-11) BUN 19 (6-23) mg/dl Creatinine 0.67 (0.6-1.2) mg/dl Est Cr Clr Drug Dosing Not Reportable Est GFR ( Amer) 134.8 ml/min Est GFR (Non-Af Amer) 116.3 ml/min BUN/Creatinine Ratio 28.4 H (10-20) Glucose 133 H (70-99(Fasting)) mg/dl Calcium 8.7 (8.5-10.1) mg/dl Total Bilirubin 1.1 H (0.2-1.0) mg/dl AST 30 (13-39) U/L ALT 28 (7-52) U/L Alkaline Phosphatase 48 (34-104) U/L Total Protein 6.9 (6.0-8.3) gm/dl Albumin 4.1 (3.4-5.0) gm/dl Globulin 2.8 (2.5-4.0) gm/dl Albumin/Globulin Ratio 1.5 (0.9-2) Lipase 21 (11-82) U/L SARS-CoV-2, RNA, NAAT NEGATIVE (NEGATIVE) Imaging Data Radiologist's Impression: Abdomen/Pelvis CT 01/29/22 05:49 CT OF THE ABDOMEN AND PELVIS WITH CONTRAST CLINICAL HISTORY: Abdominal pain. Cholecystectomy yesterday. COMPARISON STUDY: CT of the abdomen and pelvis November 29, 2021. TECHNIQUE: Following IV administration of 93 mL of Optiray, axial images of the abdomen and pelvis were obtained from the lung bases to the proximal femurs. Images were reviewed in the axial, sagittal, and coronal planes. IV contrast was administered without complication. Automated exposure control was utilized for the study. A dose lowering technique was utilized adhering to the principles of ALARA. CT DOSE: 263.55 mGy.cm FINDINGS: Lung bases are unremarkable. Pneumoperitoneum is noted. There is also gas within the abdominal wall. This gas is postsurgical. There is no biliary ductal dilatation status post cholecystectomy. Periportal edema is noted. There are no hepatic lesions. There is no evidence for traumatic injury to the liver. Spleen, adrenal glands, kidneys and pancreas are unremarkable. There is no peripancreatic fluid. Note is made of a small amount of fluid within the cholecystectomy bed which measures above water attenuation. There is gas within the cholecystectomy bed as expected. Small to moderate amount of fluid within the pelvis is noted. This has minimal layering hyperdense material. This reflects blood products. No active extravasation is identified on this study. There is no evidence for a bowel obstruction. Corpus luteal cyst within the right ovary is noted. Major vasculature is patent. Tampon is in place. No acute fracture or suspicious lesion within the visualized skeletal structures is present. There is no hydronephrosis. IMPRESSION: 1. Pneumoperitoneum and gas within the abdominal wall which is postsurgical. Small amount of fluid within the cholecystectomy bed which measures above water attenuation and small to moderate amount of fluid within the pelvis with minimal layering material. The findings suggest a small amount of hemorrhage. This is nonspecific in the early postoperative setting and could be correlated with follow-up H&H levels. No active extravasation. 2. No biliary ductal dilatation. Periportal edema which may be postsurgical or related to hydration. ACT 112: Negative or not required by law. Electronically signed by: Shane Garcia M.D. 01/29/2022 7:50 AM MDM Narrative This patient comes in as described above. She was placed in room B 11. She is here after having abdominal pain status post laparoscopic cholecystectomy done as an outpatient yesterday. Her vital signs are stable. IV access was established and she was hydrated with IV normal saline. she was given IV morphine and IV Zofran for pain management and nausea management. Blood work was obtained as well as imaging. She was reassessed frequently. She has a mildly elevated white count but hemoglobin stable. She is nursing of electrolyte or metabolic abnormalities. COVID testing was negative. CAT scan shows bladder likely postsurgical changes which are expected free air and a small hematoma around the gallbladder fossa. It is difficult to discern if there is anything else acutely going on. She did require Dilaudid 0.5 mg IV and seems more comfortable she was given an additional Toradol 10 mg IV. I did talk to Dr. Lu the surgeon on-call he has seen the patient ER is can admit her for observation. Impression & Plan Abdominal pain, S/P laparoscopic cholecystectomy, Lab test negative for COVID- 19 virus, Nausea Discharge Plan Visit Data Chief Complaint: Abdominal Pain Stated Complaint: GULLBLADDER TAKEN OUT - MAJOR PAIN ED Provider: Ttio Stein Discharge Problem: Abdominal pain, S/P laparoscopic cholecystectomy, Lab test negative for COVID- 19 virus, Nausea Patient Disposition: Admitted As Inpatient Discharge Instructions Interventions: ED Discharge Assessment Last Done: 01/29/22 11:30 Forms Stand Alone Forms: My [facility] Prescriptions Prescriptions: No Action Vitamin 27 mg iron- 800 mcg Tablet 800 tab PO DAILY RF: 0 promethazine 25 mg tablet 25 mg PO TID PRN (Reason: sedation) Qty: 20 RF: 0 Referrals Referrals: Elvira Ross PA-C [Primary Care Provider] - Discharge Problem: Abdominal pain Qualifiers: Abdominal location: generalized Qualified Code(s): R10.84 - Generalized abdominal pain
[2022-01-29 07:13] LABS: Alanine Aminotransferase 28 U/L (7-52); Albumin Globulin Ratio 1.5 (0.9-2); Albumin Level 4.1 gm/dl (3.4-5.0); Alkaline Phosphatase 48 U/L (34-104); Anion Gap 6 (3-11); Aspartate Aminotransferase 30 U/L (13-39); BUN Creatinine Ratio 28.4 (10-20); Bilirubin,Total 1.1 mg/dl (0.2-1.0); Blood Urea Nitrogen 19 mg/dl (6-23); Calcium 8.7 mg/dl (8.5-10.1); Carbon Dioxide 27 mmol/L (21-32); Chloride 103 mmol/L (98-107); Est GFR (African American) 134.8 ml/min; Est GFR (Non-African American) 116.3 ml/min; Globulin 2.8 gm/dl (2.5-4.0); Glucose 133 mg/dl (70-99(Fasting)); Lipase 21 U/L (11-82); Potassium 3.5 mmol/L (3.5-5.1); Sodium 136 mmol/L (136-145); Total Protein 6.9 gm/dl (6.0-8.3)
[2022-01-29] MEDS ORDERED: HYDROmorphone INJ 0.5 MG/0.5 ML SYR IV STA (07:19)
[2022-01-29] MEDS ORDERED: OPTIRAY 320 100ml IV ONE (07:33)
--- NOTE | 2022-01-29 07:51 | CT Scan Report ---
CT OF THE ABDOMEN AND PELVIS WITH CONTRAST CLINICAL HISTORY: Abdominal pain. Cholecystectomy yesterday. COMPARISON STUDY: CT of the abdomen and pelvis November 29, 2021. TECHNIQUE: Following IV administration of 93 mL of Optiray, axial images of the abdomen and pelvis we re obtained from the lung bases to the proximal femurs. Images were reviewed in the axial, sagittal, and coronal planes. IV contrast was administered without complication. Automated exposure control wa s utilized for the study. A dose lowering technique was utilized adhering to the principles of ALARA . CT DOSE: 263.55 mGy.cm FINDINGS: Lung bases are unremarkable. Pneumoperitoneum is noted. There is also gas within the abdomi nal wall. This gas is postsurgical. There is no biliary ductal dilatation status post cholecystectomy . Periportal edema is noted. There are no hepatic lesions. There is no evidence for traumatic injury to the liver. Spleen, adrenal glands, kidneys and pancreas are unremarkable. There is no peripancreat ic fluid. Note is made of a small amount of fluid within the cholecystectomy bed which measures above water attenuation. There is gas within the cholecystectomy bed as expected. Small to moderate amount of fluid within the pelvis is noted. This has minimal layering hyperdense material. This reflects bl ood products. No active extravasation is identified on this study. There is no evidence for a bowel o bstruction. Corpus luteal cyst within the right ovary is noted. Major vasculature is patent. Tampon i s in place. No acute fracture or suspicious lesion within the visualized skeletal structures is prese nt. There is no hydronephrosis. IMPRESSION: 1. Pneumoperitoneum and gas within the abdominal wall which is postsurgical. Small amount of fluid wi thin the cholecystectomy bed which measures above water attenuation and small to moderate amount of f luid within the pelvis with minimal layering material. The findings suggest a small amount of hemorrh age. This is nonspecific in the early postoperative setting and could be correlated with follow-up H&H levels. No active extravasation. 2. No biliary ductal dilatation. Periportal edema which may be postsurgical or related to hydration. ACT 112: Negative or not required by law. Electronically signed by: Shane Garcia M.D. 01/29/2022 7:50 AM
[2022-01-29] MEDS ORDERED: KETOROLAC TROMETHAMINE 15 MG/ML VIAL IV ONE (08:06)
--- NOTE | 2022-01-29 12:19 | History & Physical Report ---
Date of Service January 29, 2022 Assessment & Plan (1) S/P laparoscopic cholecystectomy: (2) Abdominal pain: Plan: 31-year-old woman with significant pain status post laparoscopic cholecystectomy yesterday by Dr. Finch. LFTs are normal. White blood cell count is slightly elevated. We will admit her for pain control and observation. If she develops any further symptoms, she may require HIDA scan to rule out bile leak. Admission and Anticipated Discharge Date Admission Date: January 29, 2022 History of Present Illness Primary Care Provider: Elvira Ross PA-C 31-year-old woman status post laparoscopic cholecystectomy yesterday by Dr. Finch presents with severe pain in her abdomen. She did have nausea and vomited yesterday. She denies fevers or chills. In the emergency department, her pain has been controlled with IV pain medication. White blood cell count 14, liver function tests normal. Allergies Allergy/AdvReac Type Severity Reaction Status Date / Time Penicillins Allergy Unknown . Verified 06/11/19 23:17 Home Medications Medication Instructions Recorded Confirmed Type vits no.124-ferrous fum 800 tab PO DAILY 01/15/20 01/15/20 History 27 mg iron-folic acid 800 mcg tablet ( Vitamin) promethazine 25 mg tablet 25 mg PO TID PRN #20 tab 11/29/21 Rx Past Med/Surg History Medical History No significant past medical history Surgical History H/O removal of cyst Family History Other No pertinent family history Social History Smoking Status: Never smoker Tobacco Type: Cigarettes Second Hand Exposure: Yes; Hx Alcohol Use: No Hx Substance Use: No Preferred Language: Erit[place] marital status: Feels Safe at Home: Yes Physical Exam Constitutional: WD/WN, vitals as above Neck: trachea midline, no thyromegaly Respiratory: normal respiratory effort, lungs clear to auscultation Cardiovascular: RRR, no murmur, no edema Gastrointestinal (Abdomen): Inspection/Auscultation: abdomen normal to inspection and + abdominal surgical incision (Dressing is clean and dry); abdomen not distended Percussion/Palpation: + abdomen tender (Epigastric region) and abdomen soft; no guarding and abdomen not rigid Skin: no rashes, warm and dry Psychiatric: A+Ox3, euthymic affect Results & Data Results & Data ([facility]) Vital Signs (Past 12 Hours) Vital Signs Temp Pulse Pulse Resp BP BP Pulse Ox 01/29/22 12:00 36.7 C 47 L 16 125/75 100 01/29/22 11:30 48 L 16 109/72 98 01/29/22 11:01 44 L 20 114/76 100 01/29/22 11:00 48 L 15 100 01/29/22 10:30 51 L 19 110/78 100 01/29/22 10:00 55 L 20 116/80 100 01/29/22 09:30 48 L 16 124/77 100 01/29/22 09:00 48 L 48 L 16 132/78 124/77 100 01/29/22 08:30 44 L 16 125/70 99 01/29/22 08:10 60 15 133/75 99 01/29/22 08:00 41 L 16 100 01/29/22 07:49 57 L 14 100 01/29/22 07:43 61 18 91/63 L 98 01/29/22 06:04 50 L 18 116/64 100 01/29/22 05:37 36.9 C 58 L 20 133/71 99 Laboratory Results 01/29/22 01/29/22 01/29/22 Range/Units 06:44 06:11 06:11 WBC 14.17 H (4.8-10.8) K/uL RBC 4.13 L (4.2-5.4) M/uL Hgb 12.6 (12.0-16.0) g/dL Hct 37.8 (37-47) % MCV 91.5 (80-100) fL MCH 30.5 (25-34) pg MCHC 33.3 (32-36) g/dL RDW Std Deviation 43.2 (36.4-46.3) fL RDW Coeff of Tres 12.8 (11.5-14.5) % Plt Count 239 (130-400) K/uL MPV 11.2 H (7.4-10.4) fL Immature Gran % (Auto) 0.3 % Neut % (Auto) 87.2 % Lymph % (Auto) 7.3 % Carlisle % (Auto) 4.9 % Eos % (Auto) 0.2 % Baso % (Auto) 0.1 % Neut # (Auto) 12.35 H (1.4-6.5) K/uL Lymph # (Auto) 1.03 L (1.2-3.4) K/uL Carlisle # (Auto) 0.70 H (0.11-0.59) K/uL Eos # (Auto) 0.03 (0-0.5) K/uL Baso # (Auto) 0.02 (0-0.2) K/uL Immature Gran # (Auto) 0.04 H (0.00-0.02) K/uL Sodium 136 (136-145) mmol/L Potassium 3.5 (3.5-5.1) mmol/L Chloride 103 (98-107) mmol/L Carbon Dioxide 27 (21-32) mmol/L Anion Gap 6 (3-11) BUN 19 (6-23) mg/dl Creatinine 0.67 (0.6-1.2) mg/dl Est Cr Clr Drug Dosing Not Reportable Est GFR ( Amer) 134.8 ml/min Est GFR (Non-Af Amer) 116.3 ml/min BUN/Creatinine Ratio 28.4 H (10-20) Glucose 133 H (70-99(Fasting)) mg/dl Calcium 8.7 (8.5-10.1) mg/dl Total Bilirubin 1.1 H (0.2-1.0) mg/dl AST 30 (13-39) U/L ALT 28 (7-52) U/L Alkaline Phosphatase 48 (34-104) U/L Total Protein 6.9 (6.0-8.3) gm/dl Albumin 4.1 (3.4-5.0) gm/dl Globulin 2.8 (2.5-4.0) gm/dl Albumin/Globulin Ratio 1.5 (0.9-2) Lipase 21 (11-82) U/L SARS-CoV-2, RNA, NAAT NEGATIVE (NEGATIVE) Code Status & VTE Plan VTE Prophylaxis Plan VTE Prophylaxis will be ordered: Yes (1) Abdominal pain Abdominal location: generalized Qualified Code(s): R10.84 - Generalized abdominal pain
[2022-01-29] MEDS: ENOXAPARIN INJ 40 MG/0.4 ML SYR SQ SCH (14:05)
[2022-01-29] MEDS: KETOROLAC TROMETHAMINE 15 MG/ML VIAL IV SCH ×2 (14:46→20:46)
[2022-01-29] MEDS: oxyCODONE/ACETAMINOPHEN 5mg/325mg TAB PO PRN ×2 (14:47→20:46)
[2022-01-29] MEDS: ONDANSETRON INJ 2 MG/ML 2 ML VIAL IV PRN (20:48)
[2022-01-29 21:22] LABS: Appearance Urine Turbid (Clear); Bacteria Urine Automated 1+ (Negative); Bilirubin Urine Negative (Negative); Blood Urine Negative (Negative); Color Urine Yellow; Epithelial Cell Urine Auto >30 /lpf (0-5); Glucose Urine UA Negative (Negative); Ketones Urine Trace (Negative); Leukocyte Esterase Urine Negative (Negative); Nitrite Urine Negative (Negative); Protein Urine 1+ (Negative); RBC Urine Automated >30 /hpf (0-4); Specific Gravity Urine 1.041 (1.000-1.030); Urobilinogen Urine Negative (Negative); pH Urine 6.5 (4.5-7.5)
[2022-01-29 21:36] LABS: Amorphous Sediment Urine Present (None Prsent); Calcium Oxalate Crystals Urine Present (None Prsent)
[2022-01-29] MEDS: HYDROmorphone INJ 0.5 MG/0.5 ML SYR IV PRN (22:02)
[2022-01-30] MEDS: HYDROmorphone INJ 0.5 MG/0.5 ML SYR IV PRN (00:15)
[2022-01-30] MEDS: PROMETHAZINE HCL 12.5 MG in SODIUM CHLORIDE 0.9% 50 ML IV PRN (00:31)
[2022-01-30] MEDS: KETOROLAC TROMETHAMINE 15 MG/ML VIAL IV SCH ×4 (03:58→20:03)
[2022-01-30 06:08] LABS: Basophils # (auto) 0.02 K/uL (0-0.2); Basophils % (auto) 0.2 %; Eosinophils # (auto) 0.05 K/uL (0-0.5); Eosinophils % (auto) 0.4 %; Hematocrit (blood only) 35.2 % (37-47); Hemoglobin 11.6 g/dL (12.0-16.0); Immature Granulocytes # (auto) 0.02 K/uL (0.00-0.02); Immature Granulocytes % (auto) 0.2 %; Lymphocytes # (auto) 1.51 K/uL (1.2-3.4); Lymphocytes % (auto) 12.1 %; Mean Corpuscular Hemoglobin 30.1 pg (25-34); Mean Corpuscular Volume 91.2 fL (80-100); Mean Platelet Volume 11.1 fL (7.4-10.4); Monocytes # (auto) 0.73 K/uL (0.11-0.59); Monocytes % (auto) 5.8 %; Neutrophils # (auto) 10.16 K/uL (1.4-6.5); Neutrophils % (auto) 81.3 %; Platelet Count 213 K/uL (130-400); RDW Coefficient of Variation 13.1 % (11.5-14.5); RDW Standard Deviation 43.5 fL (36.4-46.3); Red Blood Count 3.86 M/uL (4.2-5.4); White Blood Count 12.49 K/uL (4.8-10.8)
[2022-01-30 06:25] LABS: Albumin Level 3.3 gm/dl (3.4-5.0); BUN Creatinine Ratio 29.7 (10-20); Bilirubin Direct 0.2 mg/dl (0-0.2); Bilirubin,Total 1.2 mg/dl (0.2-1.0); Calcium 8.1 mg/dl (8.5-10.1); Creatinine Clr Calc Pharmacy 103.4 ml/min; Est GFR (African American) 136.8 ml/min; Est GFR (Non-African American) 118.1 ml/min; Total Protein 5.6 gm/dl (6.0-8.3)
--- NOTE | 2022-01-30 10:43 | Surgery Progress Note ---
Date of Service January 30, 2022 Assessment & Plan (1) S/P laparoscopic cholecystectomy: (2) Abdominal pain: Plan: 31-year-old woman with significant pain status post laparoscopic cholecystectomy yesterday by Dr. Finch. White blood cell count decreased to 12 from 14, total bilirubin 1.2. With the continued fairly severe pain, we will obtain an ultrasound and HIDA scan for further evaluation. Admission and Anticipated Discharge Date Admission Date: January 29, 2022 Subjective She states that her pain is somewhat better this morning, however she still has significant pain. She was nauseated last night. She has been able to tolerate some clears. No fevers. Physical Exam Constitutional: WD/WN, vitals as above Neck: trachea midline, no thyromegaly Gastrointestinal (Abdomen): Inspection/Auscultation: abdomen normal to inspection and + abdominal surgical incision (Dressing is clean and dry); abdomen not distended Percussion/Palpation: + abdomen tender (Epigastric region) and abdomen soft; no guarding and abdomen not rigid Skin: no rashes, warm and dry Psychiatric: A+Ox3, euthymic affect Results & Data ([facility]) Vital Signs (Past 12 Hours) Vital Signs Temp Pulse Resp BP Pulse Ox 01/30/22 08:14 37.1 C 55 L 16 100/57 L 98 (1) Abdominal pain Abdominal location: generalized Qualified Code(s): R10.84 - Generalized abdominal pain
[2022-01-30] MEDS: oxyCODONE/ACETAMINOPHEN 5mg/325mg TAB PO PRN ×2 (10:48→22:09)
--- NOTE | 2022-01-30 13:15 | Ultrasound Report ---
ABDOMINAL ULTRASOUND, RIGHT UPPER QUADRANT HISTORY: s/p lap gabo POD2, severe pain epigastrium. COMPARISON: CT of the abdomen and pelvis January 29, 2022. FINDINGS: This exam is mildly compromised by suboptimal penetration. There is no biliary ductal dilat ation status post cholecystectomy. Echogenic shadowing material within the cholecystectomy bed may re flect gas as shown on CT. No well-defined cholecystectomy bed fluid collection is identified by sonog jr. No hepatic lesions are present. Pancreatic body is normal. Head and tail are slightly obscured . There is no right hydronephrosis. Trace right perinephric fluid. IMPRESSION: 1. No biliary ductal dilatation status post cholecystectomy. 2. Echogenic shadowing material within the cholecystectomy bed which may reflect gas, as shown on CT. Small amount of fluid within the cholecystectomy bed without well-defined fluid collection. ACT 112: Negative or not required by law. Electronically signed by: Shane Garcia M.D. 01/30/2022 1:14 PM
[2022-01-30] MEDS: ENOXAPARIN INJ 40 MG/0.4 ML SYR SQ SCH (13:48)
[2022-01-31] MEDS: KETOROLAC TROMETHAMINE 15 MG/ML VIAL IV SCH ×4 (03:57→21:16)
[2022-01-31 06:08] LABS: Basophils # (auto) 0.03 K/uL (0-0.2); Basophils % (auto) 0.4 %; Eosinophils # (auto) 0.38 K/uL (0-0.5); Eosinophils % (auto) 4.7 %; Hemoglobin 10.8 g/dL (12.0-16.0); Immature Granulocytes # (auto) 0.01 K/uL (0.00-0.02); Immature Granulocytes % (auto) 0.1 %; Lymphocytes # (auto) 1.55 K/uL (1.2-3.4); Lymphocytes % (auto) 19.2 %; Mean Corpuscular Hemoglobin 29.8 pg (25-34); Mean Corpuscular Hgb Conc 32.7 g/dL (32-36); Mean Corpuscular Volume 90.9 fL (80-100); Mean Platelet Volume 11.1 fL (7.4-10.4); Monocytes # (auto) 0.53 K/uL (0.11-0.59); Monocytes % (auto) 6.6 %; Neutrophils # (auto) 5.57 K/uL (1.4-6.5); Platelet Count 181 K/uL (130-400); RDW Coefficient of Variation 12.8 % (11.5-14.5); Red Blood Count 3.63 M/uL (4.2-5.4); White Blood Count 8.07 K/uL (4.8-10.8)
[2022-01-31] MEDS: oxyCODONE/ACETAMINOPHEN 5mg/325mg TAB PO PRN ×2 (10:42→17:19)
--- NOTE | 2022-01-31 11:24 | Surgery Progress Note ---
Date of Service January 31, 2022 Assessment & Plan (1) S/P laparoscopic cholecystectomy: (2) Abdominal pain: Plan: 31-year-old woman with significant pain status post laparoscopic cholecystectomy yesterday by Dr. Cartwright. White blood cell count decreased to 12 from 14, total bilirubin 1.2. With the continued fairly severe pain, we will obtain an ultrasound and HIDA scan for further evaluation. 01/31/2022 11:26AM, Dr. Cartwright 31-year-old woman with significant pain status post laparoscopic cholecystectomy on 01/28/2022, White blood cell count decreased to 12 from 14, total bilirubin 1.2. reviewed U/S abd Ct scan with pt, With the continued fairly severe pain, we will obtain HIDA scan for further evaluation. consult GI for further diagnosis and treatment, tolerated clear diet, continue treatment, will F/U, pt agrees with the treatment plan, I answered all questions, Admission and Anticipated Discharge Date Admission Date: January 29, 2022 Subjective She states that her pain is somewhat better this morning, however she still has significant pain. She was nauseated last night. She has been able to tolerate some clears. No fevers. 01/31/2022 11:21AM, Dr. Cartwright F/U S/P lap gabo, POD 3, abdominal pain, pt feels better, some epigastric pain, no diarrhea, nausea, no vomiting, no fever, Physical Exam Constitutional: WD/WN, vitals as above no distress, Eyes: PERRL, conjunctivae normal, anicteric sclerae Neck: trachea midline, no thyromegaly Respiratory: normal respiratory effort, lungs clear to auscultation Cardiovascular: RRR, no murmur, no edema Gastrointestinal (Abdomen): soft, mild tenderness at epigastric area, no rebound pain, no distend, all incisions heal well, BS + Musculoskeletal: no cyanosis or clubbing, extremities motor strength 5/5 Skin: no rashes, warm and dry Neurologic: patellar DTR's 2+ bilat, sensation intact Psychiatric: A+Ox3, euthymic affect Results & Data ([facility]) Vital Signs (Past 12 Hours) Vital Signs Temp Pulse Resp BP Pulse Ox 01/31/22 07:45 36.8 C 73 16 121/77 100 Laboratory Results Abnormal Labs 01/29/22 01/29/22 01/29/22 06:11 06:11 20:45 WBC 14.17 H RBC 4.13 L Hgb Hct MPV 11.2 H Neut # (Auto) 12.35 H Lymph # (Auto) 1.03 L [place] # (Auto) 0.70 H Immature Gran # (Auto) 0.04 H BUN/Creatinine Ratio 28.4 H Glucose 133 H Calcium Total Bilirubin 1.1 H Total Protein Albumin Urine Appearance Turbid A Ur Specific [place] 1.041 H Urine Protein 1+ H Urine Ketones Trace H Urine RBC (Auto) >30 H U Epithel Cells (Auto) >30 H Urine Bacteria (Auto) 1+ H Calcium Oxalate Crystal Present A Amorphous Sediment Present A 01/30/22 01/30/22 01/31/22 05:26 05:26 05:12 WBC 12.49 H RBC 3.86 L 3.63 L Hgb 11.6 L 10.8 L Hct 35.2 L 33.0 L MPV 11.1 H 11.1 H Neut # (Auto) 10.16 H Lymph # (Auto) [place] # (Auto) 0.73 H Immature Gran # (Auto) BUN/Creatinine Ratio 29.7 H Glucose Calcium 8.1 L Total Bilirubin 1.2 H Total Protein 5.6 L Albumin 3.3 L Urine Appearance Ur Specific [place] Urine Protein Urine Ketones Urine RBC (Auto) U Epithel Cells (Auto) Urine Bacteria (Auto) Calcium Oxalate Crystal Amorphous Sediment Diagnostic Findings ABDOMINAL ULTRASOUND, RIGHT UPPER QUADRANT HISTORY: s/p lap gabo POD2, severe pain epigastrium. COMPARISON: CT of the abdomen and pelvis January 29, 2022. FINDINGS: This exam is mildly compromised by suboptimal penetration. There is no biliary ductal dilatation status post cholecystectomy. Echogenic shadowing material within the cholecystectomy bed may reflect gas as shown on CT. No well- defined cholecystectomy bed fluid collection is identified by sonography. No hepatic lesions are present. Pancreatic body is normal. Head and tail are slightly obscured. There is no right hydronephrosis. Trace right perinephric fluid. IMPRESSION: 1. No biliary ductal dilatation status post cholecystectomy. 2. Echogenic shadowing material within the cholecystectomy bed which may reflect gas, as shown on CT. Small amount of fluid within the cholecystectomy bed without well-defined fluid collection. CT OF THE ABDOMEN AND PELVIS WITH CONTRAST CLINICAL HISTORY: Abdominal pain. Cholecystectomy yesterday. COMPARISON STUDY: CT of the abdomen and pelvis November 29, 2021. TECHNIQUE: Following IV administration of 93 mL of Optiray, axial images of the abdomen and pelvis were obtained from the lung bases to the proximal femurs. Images were reviewed in the axial, sagittal, and coronal planes. IV contrast was administered without complication. Automated exposure control was utilized for the study. A dose lowering technique was utilized adhering to the principles of ALARA. CT DOSE: 263.55 mGy.cm FINDINGS: Lung bases are unremarkable. Pneumoperitoneum is noted. There is also gas within the abdominal wall. This gas is postsurgical. There is no biliary ductal dilatation status post cholecystectomy. Periportal edema is noted. There are no hepatic lesions. There is no evidence for traumatic injury to the liver. Spleen, adrenal glands, kidneys and pancreas are unremarkable. There is no peripancreatic fluid. Note is made of a small amount of fluid within the cholecystectomy bed which measures above water attenuation. There is gas within the cholecystectomy bed as expected. Small to moderate amount of fluid within the pelvis is noted. This has minimal layering hyperdense material. This reflects blood products. No active extravasation is identified on this study. There is no evidence for a bowel obstruction. Corpus luteal cyst within the right ovary is noted. Major vasculature is patent. Tampon is in place. No acute fracture or suspicious lesion within the visualized skeletal structures is present. There is no hydronephrosis. IMPRESSION: 1. Pneumoperitoneum and gas within the abdominal wall which is postsurgical. Small amount of fluid within the cholecystectomy bed which measures above water attenuation and small to moderate amount of fluid within the pelvis with minimal layering material. The findings suggest a small amount of hemorrhage. This is nonspecific in the early postoperative setting and could be correlated with follow-up H&H levels. No active extravasation. 2. No biliary ductal dilatation. Periportal edema which may be postsurgical or related to hydration. ACT 112: Negative or not required by law. (1) Abdominal pain Abdominal location: generalized Qualified Code(s): R10.84 - Generalized abdominal pain
[2022-01-31] MEDS: ENOXAPARIN INJ 40 MG/0.4 ML SYR SQ SCH (12:20)
[2022-01-31] MEDS: HYDROmorphone INJ 0.5 MG/0.5 ML SYR IV PRN ×2 (12:23→20:03)
--- NOTE | 2022-01-31 13:47 | Gastrointestinal Consultation ---
Date of Consultation January 31, 2022 Assessment & Plan (1) Abdominal pain: pain seems to be different and precipitated by surgery, potential early biloma/bile leak or just healing. It is promising that she is improved today EGDs likely to add nothing to her overall acute presentation, I am okay with reinstituting Prilosec daily suggest HIDA scan daily LFTs call with questions (2) S/P laparoscopic cholecystectomy: History of Present Illness Attending Physician: Kwame Lu MD History of Present Illness This is a 31-year-old female who presented day post cholecystectomy for intense right upper quadrant abdominal pain. She underwent cholecystectomy January 28, the next day she began to have this intense sharp pain that was different from her previous pain that warranted gallbladder removal. She states that this is much more intense and severe, although improved today, she is able to tolerate a liquid tray, still having pretty significant discomfort. LFTs are normal, CT scan does show some hyperdense fluid in the gallbladder fossa consistent with hemorrhage, hemoglobin is stable. Has chronic heartburn, has not been having any heartburn recently. No bowel movement since surgery. Allergies Allergy/AdvReac Type Severity Reaction Status Date / Time Penicillins Allergy Unknown . Verified 06/11/19 23:17 Home Medications Medication Instructions Recorded Confirmed Type vits no.124-ferrous fum 800 tab PO DAILY 01/15/20 01/15/20 History 27 mg iron-folic acid 800 mcg tablet ( Vitamin) promethazine 25 mg tablet 25 mg PO TID PRN #20 tab 11/29/21 Rx Patient History Medical History No significant past medical history Surgical History H/O removal of cyst Family History Other No pertinent family history Social History Smoking Status: Former smoker Tobacco Type: Cigarettes Second Hand Exposure: Yes (Fiance smokes); Do You Dip or Chew Tobacco: No; Tobacco Cessation Education Requested by Patient: No Hx Alcohol Use: Yes Hx Substance Use: No Preferred Language: Sinhala Communication Ability: Effective Beliefs That Will Affect Care: None marital status: Current Living Situation: Other Current Living Situation Comment: Lives with Fiance and 5 daughters Other Information That Helps Us Care for You: No Feels Safe at Home: Yes Safety Concerns: Feels Safe At This Time Assistive Devices: None Physical Exam Physical Exam: Awake alert and oriented x3 moving all extremities no apparent distress, has ice pack on stomach heart is regular lungs are clear normal active bowel sounds, soft but tender in the epigastrium and right upper quad no edema neurologically intact Results & Data ([facility]) Vital Signs (Past 12 Hours) Vital Signs Temp Pulse Resp BP Pulse Ox 01/31/22 07:45 36.8 C 73 16 121/77 100 (1) Abdominal pain Abdominal location: generalized Qualified Code(s): R10.84 - Generalized abdominal pain
[2022-02-01] MEDS: diphenhydrAMINE Capsule 25 MG CAP PO PRN (01:32)
[2022-02-01] MEDS: oxyCODONE/ACETAMINOPHEN 5mg/325mg TAB PO PRN (01:32)
[2022-02-01] MEDS: KETOROLAC TROMETHAMINE 15 MG/ML VIAL IV SCH ×2 (03:09→11:27)
[2022-02-01 06:59] LABS: Creatinine Clr Calc Pharmacy 114.1 ml/min; Est GFR (African American) 141.4 ml/min
--- NOTE | 2022-02-01 11:33 | Nuclear Medicine Report ---
NUCLEAR HEPATOBILIARY SCAN CLINICAL HISTORY: Epigastric abdominal pain status post cholecystectomy. COMPARISON STUDY: Abdominal ultrasound dated 01/30/2022. Abdominal CT dated 01/29/2022. TECHNIQUE: Dynamic images of the liver and anterior abdomen were obtained every 5 minutes for a total of 35 minutes following the IV administration of 5.5 mCi of technetium 99m Mebrofenin. An additional upright images obtained at 45 minutes. FINDINGS: The hepatobiliary scan shows prompt and homogeneous hepatic uptake. There is visualized act ivity within the intra and extrahepatic biliary tree at 10 minutes and within the small bowel by 10 minutes. There is pooling of tracer in the gallbladder fossa, with extraluminal tracer tracking infer iorly along the right side of the abdomen. IMPRESSION: Findings are consistent with bile leak. ACT 112: Negative or not required by law. Electronically signed by: Kenyon Allen M.D. 02/01/2022 11:31 AM
--- NOTE | 2022-02-01 12:41 | Gastroenterology Progress Note ---
Date of Service February 01, 2022 Assessment & Plan (1) Bile leak: Plan: Patient with a history of recent cholecystectomy now with evidence of a postoperative bile leak. Given the positive HIDA scan we will plan to proceed with ERCP at next available time. I have made arrangements for ERCP in the OR at [facility] either this afternoon or early tomorrow. I have discussed the risks and benefits of the procedure with the patient to include bleeding infection perforation, pain, pancreatitis and failed biliary cannulation. Admission and Anticipated Discharge Date Admission Date: January 29, 2022 Subjective Postoperative abdominal discomfort night. She did undergo a HIDA scan this morning which shows evidence of a bile leak. Physical Exam Eyes: PERRL, conjunctivae normal, anicteric sclerae ENMT: external ear and nose normal, oropharynx normal Neck: trachea midline, no thyromegaly Respiratory: normal respiratory effort, lungs clear to auscultation Cardiovascular: Rate/Rhythm: regular rate and regular rhythm Gastrointestinal (Abdomen): Tender to palpation over the right upper quadrant Results & Data ([facility]) Vital Signs (Past 12 Hours) Vital Signs Temp Pulse Resp BP Pulse Ox 02/01/22 07:16 37.0 C 64 14 97/62 L 98 Laboratory Results Laboratory Results - last 24 hr 01/29/22 02/01/22 Unknown 06:02 Creatinine 0.58 L Est Cr Clr Drug Dosing 114.1 Est GFR ( Amer) 141.4 Est GFR (Non-Af Amer) 122.0 POC Ur Test Cancelled Diagnostic Findings NUCLEAR HEPATOBILIARY SCAN CLINICAL HISTORY: Epigastric abdominal pain status post cholecystectomy. COMPARISON STUDY: Abdominal ultrasound dated 01/30/2022. Abdominal CT dated 01/29/2022. TECHNIQUE: Dynamic images of the liver and anterior abdomen were obtained every 5 minutes for a total of 35 minutes following the IV administration of 5.5 mCi of technetium 99m Mebrofenin. An additional upright images obtained at 45 minutes. FINDINGS: The hepatobiliary scan shows prompt and homogeneous hepatic uptake. There is visualized activity within the intra and extrahepatic biliary tree at 10 minutes and within the small bowel by 10 minutes. There is pooling of tracer in the gallbladder fossa, with extraluminal tracer tracking inferiorly along the right side of the abdomen. IMPRESSION: Findings are consistent with bile leak.
--- NOTE | 2022-02-01 13:11 | Surgery Progress Note ---
Date of Service February 01, 2022 Assessment & Plan (1) S/P laparoscopic cholecystectomy: Plan: see below (2) Abdominal pain: Plan: 31-year-old woman with significant pain status post laparoscopic cholecystectomy yesterday by Dr. Cartwright. White blood cell count decreased to 12 from 14, total bilirubin 1.2. With the continued fairly severe pain, we will obtain an ultrasound and HIDA scan for further evaluation. 01/31/2022 11:26AM, Dr. Cartwright 31-year-old woman with significant pain status post laparoscopic cholecystectomy on 01/28/2022, White blood cell count decreased to 12 from 14, total bilirubin 1.2. reviewed U/S abd Ct scan with pt, With the continued fairly severe pain, we will obtain HIDA scan for further evaluation. consult GI for further diagnosis and treatment, tolerated clear diet, continue treatment, will F/U, pt agrees with the treatment plan, I answered all questions, 02/01/2022 1:12PM Dr. Cartwright doing better, HIDA scan- bile leak, I informed pt about HIDA scan report, she understood, reconsult GI Dr. García for possible ERCP, D/W benefits, risks and alternatives of the ERCP, pt understood, she agrees with ERCP, I answered all questions, repeat labs in morning, continue treatment, will F/U, Admission and Anticipated Discharge Date Admission Date: January 29, 2022 Subjective Postoperative abdominal discomfort night. She did undergo a HIDA scan this morning which shows evidence of a bile leak. 02/01/2022 1:09PM Dr. Cartwright F/U S/P lap gabo, POD 4. abdominal pain, pt said she feels better, no vomiting, but nausea, no diarrhea, no fever, Physical Exam Constitutional: WD/WN, vitals as above Eyes: PERRL, conjunctivae normal, anicteric sclerae Neck: trachea midline, no thyromegaly Respiratory: normal respiratory effort, lungs clear to auscultation Cardiovascular: RRR, no murmur, no edema Gastrointestinal (Abdomen): soft, mild tenderness at right side abdomen, no rebound pain, no distend, BS +. all incisions intact, no redness, Musculoskeletal: no cyanosis or clubbing, extremities motor strength 5/5 Skin: no rashes, warm and dry Neurologic: patellar DTR's 2+ bilat, sensation intact Psychiatric: A+Ox3, euthymic affect Results & Data ([facility]) Vital Signs (Past 12 Hours) Vital Signs Temp Pulse Resp BP Pulse Ox 02/01/22 07:16 37.0 C 64 14 97/62 L 98 Diagnostic Findings NUCLEAR HEPATOBILIARY SCAN CLINICAL HISTORY: Epigastric abdominal pain status post cholecystectomy. COMPARISON STUDY: Abdominal ultrasound dated 01/30/2022. Abdominal CT dated 01/29/2022. TECHNIQUE: Dynamic images of the liver and anterior abdomen were obtained every 5 minutes for a total of 35 minutes following the IV administration of 5.5 mCi of technetium 99m Mebrofenin. An additional upright images obtained at 45 minutes. FINDINGS: The hepatobiliary scan shows prompt and homogeneous hepatic uptake. There is visualized activity within the intra and extrahepatic biliary tree at 10 minutes and within the small bowel by 10 minutes. There is pooling of tracer in the gallbladder fossa, with extraluminal tracer tracking inferiorly along the right side of the abdomen. IMPRESSION: Findings are consistent with bile leak. (1) Abdominal pain Abdominal location: generalized Qualified Code(s): R10.84 - Generalized abdominal pain
[2022-02-01] MEDS: CIPROFLOXACIN / D5W 400 MG/200 ML BAG IV SCH (13:21)
[2022-02-01 13:41] LABS: Pregnancy Test, Urine Negative (Negative)
[2022-02-01] MEDS ORDERED: fentaNYL citrate 100 MCG/2 ML VIAL IV PRN (14:39)
[2022-02-01] MEDS ORDERED: KETOROLAC 30 MG/ML VIAL IV PRN (14:39)
[2022-02-01] MEDS ORDERED: ONDANSETRON INJ 2 MG/ML 2 ML VIAL IV PRN (14:39)
[2022-02-01] MEDS ORDERED: ATROPINE SULFATE 0.1 MG/ML 10ML SYR IV PRN (14:39)
[2022-02-01] MEDS ORDERED: PROMETHAZINE HCL 6.25 MG in SODIUM CHLORIDE 0.9% 50 ML IV PRN (14:39)
--- NOTE | 2022-02-01 14:39 | Anesthesiology Consultation ---
Date of Service February 01, 2022 Assessment & Plan (1) Encounter for pre-operative examination: Chart Review Chart Review: Acceptable Risk for Surgery History Surgery Operation Date: 02/01/22 12:40 Proposed Procedures p Endoscopic Retrograde Cholangiopancreatogram - Davin García DO Height/Weight Height: 4 ft 11 in Weight: 65 kg Allergies Allergy/AdvReac Type Severity Reaction Status Date / Time Penicillins Allergy Unknown . Verified 06/11/19 23:17 Medications Home Medications Medication Instructions Recorded Confirmed Last Taken vits no.124-ferrous fum 800 tab PO DAILY 01/15/20 01/15/20 Unknown 27 mg iron-folic acid 800 mcg tablet ( Vitamin) promethazine 25 mg tablet 25 mg PO TID PRN #20 tab 11/29/21 Unknown Active Medications Generic Name Dose Route Start Last Admin Trade Name Freq PRN Reason Stop Dose Admin Diphenhydramine HCl 25 mg 01/29/22 12:07 02/01/22 01:32 Diphenhydramine Capsule 25 Mg Cap PO 02/28/22 12:06 25 mg Q4H PRN Administration hives, itching or insomnia Enoxaparin Sodium 40 mg 01/29/22 13:00 01/31/22 12:20 Enoxaparin Inj 40 Mg/0.4 Ml Syr SQ 02/28/22 12:59 40 mg Q24H CLARA Administration Hydromorphone HCl 0.5 mg 01/29/22 12:07 01/31/22 20:03 Hydromorphone Inj 0.5 Mg/0.5 Ml Syr IV 02/12/22 12:06 0.5 mg Q2HWA PRN Administration Pain (6,7,8,9,10) Promethazine HCl 12.5 mg/ 50.5 mls @ 204 mls/hr 01/29/22 12:07 01/30/22 00:50 Sodium Chloride IV 02/28/22 12:06 Infused Q6H PRN Infusion Nausea And Vomiting Ciprofloxacin 400 mg in 200 mls @ 100 mls/hr 02/01/22 13:00 02/01/22 13:21 Cipro / D5w IV 02/11/22 12:59 100 mls/hr Q12H CLARA Administration Protocol Ketorolac Tromethamine 15 mg 01/29/22 15:00 02/01/22 11:27 Ketorolac Tromethamine 15 Mg/Ml Vial IV 02/03/22 14:59 15 mg Q6H CLARA Administration Ondansetron HCl 4 mg 01/29/22 12:07 01/29/22 20:48 Ondansetron Inj 2 Mg/Ml 2 Ml Vial IV 02/28/22 12:06 4 mg Q4H PRN Administration Nausea And Vomiting Oxycodone/Acetaminophen 2 tab 01/29/22 12:07 02/01/22 01:32 Oxycodone/Acetaminophen 5mg/325mg Tab PO 02/12/22 12:06 2 tab Q4H PRN Administration SEVERE Pain (7,8,9,10) Past Medical History Medical History (Updated 02/01/22 @ 14:38 by Jeffry Marshall MD) Bile leak No significant past medical history Past Family History Family History Other No pertinent family history Past Surgical History Surgical History (Updated 02/01/22 @ 14:38 by Jeffry Marshall MD) H/O removal of cyst Hx laparoscopic cholecystectomy Social History Smoking Status: Former smoker Do You Dip or Chew Tobacco: No Hx Alcohol Use: Yes alcohol intake frequency: holidays/special occasions only Hx Substance Use: No Physical Exam Vital Signs Last Vital Signs Temp 37.0 C 02/01/22 07:16 Pulse 64 02/01/22 07:16 Resp 14 02/01/22 07:16 BP 97/62 L 02/01/22 07:16 Pulse Ox 98 02/01/22 07:16 Testing Laboratory Results 01/31/22 05:12 02/01/22 06:02 Urine Color Yellow 01/29/22 20:45 Urine Appearance Turbid (Clear) A 01/29/22 20:45 Urine pH 6.5 (4.5-7.5) 01/29/22 20:45 Ur Specific [place] 1.041 (1.000-1.030) H 01/29/22 20:45 Urine Protein 1+ (Negative) H 01/29/22 20:45 Urine Glucose (UA) Negative (Negative) 01/29/22 20:45 Urine Ketones Trace (Negative) H 01/29/22 20:45 Urine Nitrite Negative (Negative) 01/29/22 20:45 Ur Leukocyte Esterase Negative (Negative) 01/29/22 20:45 Urine WBC (Auto) 1-5 /hpf (0-5) 01/29/22 20:45 Urine RBC (Auto) >30 /hpf (0-4) H 01/29/22 20:45 U Hyaline Cast (Auto) 1-5 /lpf (0-5) 01/29/22 20:45 U Epithel Cells (Auto) >30 /lpf (0-5) H 01/29/22 20:45 Urine Bacteria (Auto) 1+ (Negative) H 01/29/22 20:45 Urine Test Negative (Negative) 02/01/22 13:30 01/29/22 20:45 Urine Culture - Final Urine,Clean Catch Three types of organisms present, all high counts probable skin marika. No further identifications or sensitivities to follow. 02/01/22 01/29/22 13:30 Unknown Urine Test Negative POC Ur Test Cancelled
[2022-02-01] MEDS ORDERED: LIDOCAINE 2% 2 ML VIAL/AMP(20MG/ML) INFIL ONE (14:54)
[2022-02-01] MEDS ORDERED: PROPOFOL IV EMULSION 10 MG/ML 20 ML VIAL IV ONE (14:54)
[2022-02-01] MEDS ORDERED: fentaNYL citrate 100 MCG/2 ML VIAL ONE (14:54)
[2022-02-01] MEDS ORDERED: MIDAZOLAM HCL 1 MG/ML 2ML VIAL ONE (14:54)
[2022-02-01] MEDS ORDERED: ONDANSETRON INJ 2 MG/ML 2 ML VIAL ONE (14:54)
[2022-02-01] MEDS ORDERED: DEXAMETHASONE SOD INJ 4 MG/ML VIAL ONE (14:54)
[2022-02-01] MEDS ORDERED: SUCCINYLCHOLINE CHLORIDE 20 MG/ML 10 ML VIAL IV ONE (14:54)
[2022-02-01] MEDS ORDERED: INDOMETHACIN 50 MG SUPP PR ONE ×2 (15:02→15:04)
--- NOTE | 2022-02-01 15:43 | Post Operative Brief Note ---
Immediate Post Op Note v1 Date of Surgery February 01, 2022 Pre & Post Diagnosis Operation Date: 02/01/22 12:40 Pre-Op Diagnosis: S/P LAP RAJNI,POSTOP PAIN Post-Op Diagnosis: Bile leak I identified the patient and participated in the time-out.: Yes Procedure Operation Date: 02/01/22 12:40 Actual Procedures p Endoscopic Retrograde Cholangiopancreato - Davin García DO Surgeon Davin García DO Production Graphic Designer none Estimated Blood Loss 0 Findings Consistent with Post-Op Diagnosis
--- NOTE | 2022-02-01 15:44 | Communication Note ---
Date of Service: February 01, 2022 The patient underwent ERCP for a suspected bile duct leak today. She was found to have evidence of leakage from the cystic duct remnant. Biliary sphincter otomy was performed. A biliary stent was placed in addition to a prophylactic pancreatic stent. Recommendations May have clear liquids today Watch for signs of post ERCP pancreatitis given young age patient Antibiotic coverage for total 7 days per General surgery Outpatient ERCP for stent removal in 6 to 8 weeks.
--- NOTE | 2022-02-01 15:50 | GI REPORT ---
Patient Name: Cheyanne Holcomb Procedure Date: 02/01/2022 3:18 PM Date of : 1990 Admit Type: Inpatient Age: 31 Gender: Female Attending MD: Davin García DO Procedure: ERCP Providers: Davin García DO Referring MD: Monalisa Sapp Md Indications: Suspected bile leak Medicines: General Anesthesia Complications: No immediate complications. Estimated blood loss: Minimal. Estimated Blood Loss: Estimated blood loss was minimal. Procedure: Pre-Anesthesia Assessment: - Prior to the procedure, a History and Physical was performed, and patient medications, allergies and sensitivities were reviewed. The patient's tolerance of previous anesthesia was reviewed. - The risks and benefits of the procedure and the sedation options and risks were discussed with the patient. All questions were answered and informed consent was obtained. - Patient identification and proposed procedure were verified prior to the procedure by the physician, the nurse and the pension adviser. The procedure was verified in the procedure room. - Pre-procedure physical examination revealed no contraindications to sedation. - ASA Grade Assessment: II - A patient with mild systemic disease. - After reviewing the risks and benefits, the patient was deemed in satisfactory condition to undergo the procedure. - The anesthesia plan was to use general anesthesia. - Immediately prior to administration of medications, the patient was re-assessed for adequacy to receive sedatives. - The heart rate, respiratory rate, oxygen saturations, blood pressure, adequacy of pulmonary ventilation, and response to care were monitored throughout the procedure. - The physical status of the patient was re-assessed after the procedure. After obtaining informed consent, the scope was passed under direct vision. Throughout the procedure, the patient's blood pressure, pulse, and oxygen saturations were monitored continuously. The Duodenoscope was introduced through the mouth, and advanced to the duodenum and used to inject contrast into the bile duct. The ERCP was accomplished without difficulty. The patient tolerated the procedure well. Findings: A veterinary technician instructor film of the abdomen was obtained. Surgical clips, consistent with a previous cholecystectomy, were seen in the area of the right upper quadrant of the abdomen. The esophagus was successfully intubated under direct vision without detailed examination of the pharynx, larynx, and associated structures, and upper GI tract. The upper GI tract was grossly normal. The major papilla was normal. The ventral pancreatic duct was inadvertently cannulated with the short-nosed traction sphincterotome and guidewire without any complications. The bile duct was deeply cannulated with the short-nosed traction sphincterotome and guidewire. Contrast was injected. I personally interpreted the bile duct images. Contrast extended to the entire biliary tree. Extravasation of contrast originating from the cystic duct was observed. Biliary sphincterotomy was made with a monofilament Fusion OMNI sphincterotome using ERBE electrocautery. There was no post-sphincterotomy bleeding. To discover objects, the biliary tree was swept with a 12 mm balloon starting at the bifurcation. Nothing was found. One 10 Fr by 7 cm biliary stent with a single external flap and a single internal flap was placed 7 cm into the common bile duct. Bile flowed through the stent. The stent was in good position. One 5 Fr by 7 cm pancreatic stent with a full external pigtail and no internal flaps was placed 7 cm into the ventral pancreatic duct. Clear fluid flowed through the stent. The stent was in good position. The endoscope was withdrawn from the patient. The total fluoroscopy exposure time was 40 seconds. Indomethacin 100 mg was given via suppository to decrease the risk of post-ERCP pancreatitis (PEP). Impression: - A bile leak was found. - One biliary stent was placed into the common bile duct. - One pancreatic stent was placed into the ventral pancreatic duct. - Indomethacin given to decrease risk of post-ERCP pancreatitis. Recommendation: - Avoid aspirin and nonsteroidal anti-inflammatory medicines for 1 week. - Clear liquid diet today. - Repeat ERCP in 6 weeks to remove stent. Davin García D.O. Davin García, 02/01/2022 3:50:12 PM This report has been signed electronically. Note Initiated On: 02/01/2022 3:18 PM Number of Addenda: 0 I attest to the content of the Intraoperative Record and orders documented therein, exceptions below {[id number]}
--- NOTE | 2022-02-01 15:56 | Fluoroscopy Report ---
FL ERCP biliary ductal CLINICAL HISTORY: ERCP TECHNIQUE: 6 views were obtained with the C-arm in the OR with the above procedure. Total fluoroscopy time was 40.2 seconds. Total skin dose was 6.29 mGy. Comparison: None available at the time of this dictation. FINDINGS/IMPRESSION: Intraoperative images were obtained of ERCP Please correlate with intraoperative fluoroscopy and operative report. ACT 112: Negative or not required by law. Electronically signed by: Greg Woods M.D. 02/01/2022 3:55 PM
--- NOTE | 2022-02-01 16:35 | Anesthesiology Progress Note ---
Date of Service February 01, 2022 Anesthesia Post Procedure Vital Signs Vital Signs: Temp Pulse Pulse Resp BP Pulse Ox 02/01/22 16:25 60 12 136/88 99 02/01/22 16:15 97.2 F L 55 L 17 143/88 H 100 02/01/22 16:05 54 L 19 140/82 100 02/01/22 15:55 58 L 21 133/85 100 02/01/22 15:46 96.8 F L 56 L 20 121/36 L 100 02/01/22 14:40 99.3 F 81 14 119/77 99 02/01/22 07:16 98.6 F 64 14 97/62 L 98 01/31/22 21:50 98.4 F 57 L 16 159/87 H 99 Pain Intensity Abdomen: Pain Intensity: 5 Transfer of Care Handoff Completed per policy Notes Mental Status: alert / awake / arousable and participated in evaluation Patient Amnestic to Procedure: Yes Nausea / Vomiting: adequately controlled Pain: adequately controlled Airway Patency, RR, SpO2: stable & adequate BP & HR: stable & adequate Hydration State: stable & adequate Anesthetic Complications: no major complications apparent and Pt Satisfied with anesthetic care
[2022-02-01] MEDS ORDERED: ACETAMINOPHEN 325 MG TAB PO PRN (16:53)
[2022-02-01] MEDS ORDERED: oxyCODONE/ACETAMINOPHEN 5mg/325mg TAB PO PRN (16:53)
[2022-02-01] MEDS: PROMETHAZINE HCL 12.5 MG in SODIUM CHLORIDE 0.9% 50 ML IV PRN (17:35)
[2022-02-02] MEDS: oxyCODONE/ACETAMINOPHEN 5mg/325mg TAB PO PRN ×5 (00:05→20:22)
[2022-02-02] MEDS: ONDANSETRON INJ 2 MG/ML 2 ML VIAL IV PRN ×2 (00:05→16:47)
[2022-02-02] MEDS: CIPROFLOXACIN / D5W 400 MG/200 ML BAG IV SCH ×2 (00:24→13:49)
[2022-02-02] MEDS: HYDROmorphone INJ 0.5 MG/0.5 ML SYR IV PRN (02:10)
[2022-02-02 06:20] LABS: Eosinophils # (auto) 0.03 K/uL (0-0.5); Eosinophils % (auto) 0.5 %; Hematocrit (blood only) 30.8 % (37-47); Hemoglobin 10.6 g/dL (12.0-16.0); Immature Granulocytes # (auto) 0.02 K/uL (0.00-0.02); Immature Granulocytes % (auto) 0.3 %; Lymphocytes # (auto) 0.92 K/uL (1.2-3.4); Lymphocytes % (auto) 15.1 %; Mean Corpuscular Hgb Conc 34.4 g/dL (32-36); Mean Corpuscular Volume 87.3 fL (80-100); Mean Platelet Volume 11.7 fL (7.4-10.4); Monocytes # (auto) 0.53 K/uL (0.11-0.59); Monocytes % (auto) 8.7 %; Neutrophils # (auto) 4.61 K/uL (1.4-6.5); Neutrophils % (auto) 75.4 %; Platelet Count 218 K/uL (130-400); RDW Coefficient of Variation 12.4 % (11.5-14.5); Red Blood Count 3.53 M/uL (4.2-5.4); White Blood Count 6.11 K/uL (4.8-10.8)
[2022-02-02 06:45] LABS: Alanine Aminotransferase 14 U/L (7-52); Albumin Globulin Ratio 1.3 (0.9-2); Albumin Level 3.1 gm/dl (3.4-5.0); Alkaline Phosphatase 69 U/L (34-104); Anion Gap 5 (3-11); Aspartate Aminotransferase 14 U/L (13-39); BUN Creatinine Ratio 40.5 (10-20); Bilirubin,Total 1.1 mg/dl (0.2-1.0); Blood Urea Nitrogen 17 mg/dl (6-23); Calcium 7.9 mg/dl (8.5-10.1); Carbon Dioxide 28 mmol/L (21-32); Chloride 103 mmol/L (98-107); Creatinine Clr Calc Pharmacy 157.6 ml/min; Est GFR (African American) > 150.0 ml/min; Est GFR (Non-African American) 135.6 ml/min; Globulin 2.3 gm/dl (2.5-4.0); Glucose 102 mg/dl (70-99(Fasting)); Potassium 4.1 mmol/L (3.5-5.1); Sodium 136 mmol/L (136-145); Total Protein 5.4 gm/dl (6.0-8.3)
--- NOTE | 2022-02-02 08:50 | Surgery Progress Note ---
Date of Service February 02, 2022 Assessment & Plan (1) S/P laparoscopic cholecystectomy: (2) Abdominal pain: Plan: POD # 5 lap gabo and POD # 1 s/p ERCP with biliary and pancreatic stents for bile leak -avss - RUQ pain improving - no n,v - t. bili and lfts stable Plan: Okay to advance diet as tolerated if okay with GI service Continue pain management as needed continue ambulating Will see how she tolerates advancement of diet and pain management for decision on discharge to home Discussed with Dr. Cartwright who agrees with above Admission and Anticipated Discharge Date Admission Date: January 29, 2022 Subjective feeling better today still having pain in RUQ but not as severe as before no n,v tolerating clears but not drinking much of them as she does not like them no chest pain or shortness of breath Physical Exam Constitutional: WD/WN, vitals as above no acute distress and not ill appearing Respiratory: normal respiratory effort; no respiratory distress Gastrointestinal (Abdomen): Inspection/Auscultation: abdomen normal to inspection and + abdominal surgical incision (covered with clean,dry, dressings); abdomen not distended Percussion/Palpation: + abdomen tender (RUQ) and abdomen soft; no guarding and abdomen not rigid Skin: no rashes, warm and dry Psychiatric: A+Ox3, euthymic affect Results & Data ([facility]) Vital Signs (Past 12 Hours) Vital Signs Temp Pulse Resp BP Pulse Ox 02/02/22 07:44 36.9 C 63 17 117/77 98 02/02/22 05:40 36.9 C 68 16 121/75 100 02/01/22 23:52 37 C 53 L 16 119/68 95 Laboratory Results 02/02/22 02/02/22 02/01/22 Range/Units 05:31 05:31 13:30 WBC 6.11 (4.8-10.8) K/uL RBC 3.53 L (4.2-5.4) M/uL Hgb 10.6 L (12.0-16.0) g/dL Hct 30.8 L (37-47) % MCV 87.3 (80-100) fL MCH 30.0 (25-34) pg MCHC 34.4 (32-36) g/dL RDW Std Deviation 40.0 (36.4-46.3) fL RDW Coeff of Tres 12.4 (11.5-14.5) % Plt Count 218 (130-400) K/uL MPV 11.7 H (7.4-10.4) fL Immature Gran % (Auto) 0.3 % Neut % (Auto) 75.4 % Lymph % (Auto) 15.1 % [place] % (Auto) 8.7 % Eos % (Auto) 0.5 % Baso % (Auto) 0.0 % Neut # (Auto) 4.61 (1.4-6.5) K/uL Lymph # (Auto) 0.92 L (1.2-3.4) K/uL [place] # (Auto) 0.53 (0.11-0.59) K/uL Eos # (Auto) 0.03 (0-0.5) K/uL Baso # (Auto) 0.00 (0-0.2) K/uL Immature Gran # (Auto) 0.02 (0.00-0.02) K/uL Sodium 136 (136-145) mmol/L Potassium 4.1 (3.5-5.1) mmol/L Chloride 103 (98-107) mmol/L Carbon Dioxide 28 (21-32) mmol/L Anion Gap 5 (3-11) BUN 17 (6-23) mg/dl Creatinine 0.42 L (0.6-1.2) mg/dl Est Cr Clr Drug Dosing 157.6 ml/min Est GFR ( Amer) > 150.0 ml/min Est GFR (Non-Af Amer) 135.6 ml/min BUN/Creatinine Ratio 40.5 H (10-20) Glucose 102 H (70-99(Fasting)) mg/dl Calcium 7.9 L (8.5-10.1) mg/dl Total Bilirubin 1.1 H (0.2-1.0) mg/dl AST 14 (13-39) U/L ALT 14 (7-52) U/L Alkaline Phosphatase 69 (34-104) U/L Total Protein 5.4 L (6.0-8.3) gm/dl Albumin 3.1 L (3.4-5.0) gm/dl Globulin 2.3 L (2.5-4.0) gm/dl Albumin/Globulin Ratio 1.3 (0.9-2) Urine Test Negative (Negative) POC Ur Test 01/29/22 Range/Units Unknown WBC (4.8-10.8) K/uL RBC (4.2-5.4) M/uL Hgb (12.0-16.0) g/dL Hct (37-47) % MCV (80-100) fL MCH (25-34) pg MCHC (32-36) g/dL RDW Std Deviation (36.4-46.3) fL RDW Coeff of Tres (11.5-14.5) % Plt Count (130-400) K/uL MPV (7.4-10.4) fL Immature Gran % (Auto) % Neut % (Auto) % Lymph % (Auto) % [place] % (Auto) % Eos % (Auto) % Baso % (Auto) % Neut # (Auto) (1.4-6.5) K/uL Lymph # (Auto) (1.2-3.4) K/uL [place] # (Auto) (0.11-0.59) K/uL Eos # (Auto) (0-0.5) K/uL Baso # (Auto) (0-0.2) K/uL Immature Gran # (Auto) (0.00-0.02) K/uL Sodium (136-145) mmol/L Potassium (3.5-5.1) mmol/L Chloride (98-107) mmol/L Carbon Dioxide (21-32) mmol/L Anion Gap (3-11) BUN (6-23) mg/dl Creatinine (0.6-1.2) mg/dl Est Cr Clr Drug Dosing ml/min Est GFR ( Amer) ml/min Est GFR (Non-Af Amer) ml/min BUN/Creatinine Ratio (10-20) Glucose (70-99(Fasting)) mg/dl Calcium (8.5-10.1) mg/dl Total Bilirubin (0.2-1.0) mg/dl AST (13-39) U/L ALT (7-52) U/L Alkaline Phosphatase (34-104) U/L Total Protein (6.0-8.3) gm/dl Albumin (3.4-5.0) gm/dl Globulin (2.5-4.0) gm/dl Albumin/Globulin Ratio (0.9-2) Urine Test (Negative) POC Ur Test Cancelled (1) Abdominal pain Abdominal location: generalized Qualified Code(s): R10.84 - Generalized abdominal pain
[2022-02-02] MEDS: ENOXAPARIN INJ 40 MG/0.4 ML SYR SQ SCH (13:51)
[2022-02-02] MEDS ORDERED: POLYETHYLENE (MIRALAX) 17 GM PACK PO STA (21:00)
[2022-02-02] MEDS ORDERED: POLYETHYLENE (MIRALAX) 17 GM PACK PO PRN (21:00)
--- NOTE | 2022-02-02 21:00 | Hospitalist Consultation ---
Date of Consultation February 02, 2022 Assessment & Plan (1) Bile leak: Final Assessment and Recommendations as follows : Post cholecystectomy bile leak status post stent placement On ciprofloxacin prophylaxis Clinically well Narcotic induced constipation Probable incipient Desire vulvovaginitis status post Fluconazole Rx Postop anemia Past tobacco abuse Bowel regimen DVT prophylaxis. Lovenox subcu as per postop orders Thank you very much for this consultation. Dr. Jose will follow patient's progress. Text document was generated using [employer] voice recognition software. It may contain grammatical or spelling errors. Kindly contact undersigned for clarification of any documentation item in question. History of Present Illness Reason for Consultation: Medical management Requesting Physician: Dr. Cartwright Attending Physician: Kwame Lu MD History of Present Illness PCP : Dr. Connors History obtained from patient, family, and records. Medical history significant for gallbladder dysfunction status post recent cholecystectomy, postop biliary leak status post stent placement, chronic diarrhea, past tobacco abuse. Patient underwent elective laparoscopic cholecystectomy for gallbladder dysfunction at [facility] last January 28, 2022. Significant postop abdominal discomfort which led to [facility] admission since January 29, 2022 under General Surgery service. Patient underwent ERCP fo with bile duct leak from cystic duct remnant yesterday. Subsequent biliary sphincterotomy with biliary/pancreatic stent placement done. Tolerable postop discomfort. No bowel movement since admission. No fever, no chills. No chest pain, no SOB. Vaginal itching/discomfort few hours ago without discharge. General surgery provider wanted to order 1 dose of Fluconazole for presumptive yeast infection as per RN. Medical History as above Surgical History : section, cholecystectomy, hemorrhoid ligation, hemorrhoidectomy, oviduct fulguration Family History : Colon cancer, DM, heart disease Personal/Social history : Past tobacco abuse, occasional EtOH intake, professional cleaner window Allergies Allergy/AdvReac Type Severity Reaction Status Date / Time Penicillins Allergy Unknown . Verified 06/11/19 23:17 vancomycin Allergy Hives Verified 02/01/22 14:51 Home Medications Medication Instructions Recorded Confirmed Type vits no.124-ferrous fum 800 tab PO DAILY 01/15/20 01/15/20 History 27 mg iron-folic acid 800 mcg tablet ( Vitamin) promethazine 25 mg tablet 25 mg PO TID PRN #20 tab 11/29/21 Rx Patient History Medical History (Updated 02/01/22 @ 14:38 by Jeffry Marshall MD) Bile leak No significant past medical history Surgical History (Updated 02/01/22 @ 14:38 by Jeffry Marshall MD) H/O removal of cyst Hx laparoscopic cholecystectomy Family History Other No pertinent family history Social History Smoking Status: Former smoker Tobacco Type: Cigarettes Second Hand Exposure: Yes (Susan smokes); Do You Dip or Chew Tobacco: No; Tobacco Cessation Education Requested by Patient: No Hx Alcohol Use: Yes Hx Substance Use: No Preferred Language: Belarusian Communication Ability: Effective Beliefs That Will Affect Care: None marital status: Current Living Situation: Other Current Living Situation Comment: Lives with Susan and 5 daughters Other Information That Helps Us Care for You: No Feels Safe at Home: Yes Safety Concerns: Feels Safe At This Time Assistive Devices: None Review of Systems Review of Systems: As per HPI, all other systems reviewed and negative Physical Exam Physical Exam: GENERAL: Comfortable, pleasant, no respiratory distress SKIN: Pallor,, warm HEENT: Pale palpebral conjunctivae, no ptosis, dry buccal mucosa NECK : Supple, no tenderness CHEST : CTA, no tenderness HEART : RRR, no obvious murmurs ABDOMEN: Some distention, minimal epigastric tenderness EXTREMITIES : No LE swelling/tenderness, no other conspicuous deformities noted NEUROLOGIC : Coherent, no facial asymmetry, no other gross focality Results & Data Results & Data ([facility]) Vital Signs (Past 12 Hours) Vital Signs Temp Pulse Resp BP Pulse Ox 02/02/22 16:14 36.8 C 71 17 96/62 L 100 02/02/22 11:10 36.7 C 78 18 126/82 100 Laboratory Results Laboratory Results WBC 6.11 K/uL (4.8-10.8) 02/02/22 05:31 RBC 3.53 M/uL (4.2-5.4) L 02/02/22 05:31 Hgb 10.6 g/dL (12.0-16.0) L 02/02/22 05:31 Hct 30.8 % (37-47) L 02/02/22 05:31 MCV 87.3 fL (80-100) 02/02/22 05:31 MCH 30.0 pg (25-34) 02/02/22 05:31 MCHC 34.4 g/dL (32-36) 02/02/22 05:31 RDW Std Deviation 40.0 fL (36.4-46.3) 02/02/22 05:31 RDW Coeff of Tres 12.4 % (11.5-14.5) 02/02/22 05:31 Plt Count 218 K/uL (130-400) 02/02/22 05:31 MPV 11.7 fL (7.4-10.4) H 02/02/22 05:31 Immature Gran % (Auto) 0.3 % 02/02/22 05:31 Neut % (Auto) 75.4 % 02/02/22 05:31 Lymph % (Auto) 15.1 % 02/02/22 05:31 [place] % (Auto) 8.7 % 02/02/22 05:31 Eos % (Auto) 0.5 % 02/02/22 05:31 Baso % (Auto) 0.0 % 02/02/22 05:31 Neut # (Auto) 4.61 K/uL (1.4-6.5) 02/02/22 05:31 Lymph # (Auto) 0.92 K/uL (1.2-3.4) L 02/02/22 05:31 [place] # (Auto) 0.53 K/uL (0.11-0.59) 02/02/22 05:31 Eos # (Auto) 0.03 K/uL (0-0.5) 02/02/22 05:31 Baso # (Auto) 0.00 K/uL (0-0.2) 02/02/22 05:31 Immature Gran # (Auto) 0.02 K/uL (0.00-0.02) 02/02/22 05:31 Sodium 136 mmol/L (136-145) 02/02/22 05:31 Potassium 4.1 mmol/L (3.5-5.1) 02/02/22 05:31 Chloride 103 mmol/L (98-107) 02/02/22 05:31 Carbon Dioxide 28 mmol/L (21-32) 02/02/22 05:31 Anion Gap 5 (3-11) 02/02/22 05:31 BUN 17 mg/dl (6-23) 02/02/22 05:31 Creatinine 0.42 mg/dl (0.6-1.2) L 02/02/22 05:31 Est Cr Clr Drug Dosing 157.6 ml/min 02/02/22 05:31 Est GFR ( Amer) > 150.0 ml/min 02/02/22 05:31 Est GFR (Non-Af Amer) 135.6 ml/min 02/02/22 05:31 BUN/Creatinine Ratio 40.5 (10-20) H 02/02/22 05:31 Glucose 102 mg/dl (70-99(Fasting)) H 02/02/22 05:31 Calcium 7.9 mg/dl (8.5-10.1) L 02/02/22 05:31 Total Bilirubin 1.1 mg/dl (0.2-1.0) H 02/02/22 05:31 Direct Bilirubin 0.2 mg/dl (0-0.2) 01/30/22 05:26 AST 14 U/L (13-39) 02/02/22 05:31 ALT 14 U/L (7-52) 02/02/22 05:31 Alkaline Phosphatase 69 U/L (34-104) 02/02/22 05:31 Total Protein 5.4 gm/dl (6.0-8.3) L 02/02/22 05:31 Albumin 3.1 gm/dl (3.4-5.0) L 02/02/22 05:31 Globulin 2.3 gm/dl (2.5-4.0) L 02/02/22 05:31 Albumin/Globulin Ratio 1.3 (0.9-2) 02/02/22 05:31 Lipase 21 U/L (11-82) 01/29/22 06:11 Urine Color Yellow 01/29/22 20:45 Urine Appearance Turbid (Clear) A 01/29/22 20:45 Urine pH 6.5 (4.5-7.5) 01/29/22 20:45 Ur Specific [place] 1.041 (1.000-1.030) H 01/29/22 20:45 Urine Protein 1+ (Negative) H 01/29/22 20:45 Urine Glucose (UA) Negative (Negative) 01/29/22 20:45 Urine Ketones Trace (Negative) H 01/29/22 20:45 Urine Blood Negative (Negative) 01/29/22 20:45 Urine Nitrite Negative (Negative) 01/29/22 20:45 Urine Bilirubin Negative (Negative) 01/29/22 20:45 Urine Urobilinogen Negative (Negative) 01/29/22 20:45 Ur Leukocyte Esterase Negative (Negative) 01/29/22 20:45 Urine WBC (Auto) 1-5 /hpf (0-5) 01/29/22 20:45 Urine RBC (Auto) >30 /hpf (0-4) H 01/29/22 20:45 U Hyaline Cast (Auto) 1-5 /lpf (0-5) 01/29/22 20:45 U Epithel Cells (Auto) >30 /lpf (0-5) H 01/29/22 20:45 Urine Bacteria (Auto) 1+ (Negative) H 01/29/22 20:45 Urine Crystals Not Reportable 01/29/22 20:45 Calcium Oxalate Crystal Present (None Prsent) A 01/29/22 20:45 Amorphous Sediment Present (None Prsent) A 01/29/22 20:45 Urine Test Negative (Negative) 02/01/22 13:30 POC Ur Test Cancelled 01/29/22 Unknown SARS-CoV-2, RNA, NAAT NEGATIVE (NEGATIVE) 01/29/22 06:44 Impressions Abdomen/Pelvis CT 01/29/22 05:49 CT OF THE ABDOMEN AND PELVIS WITH CONTRAST CLINICAL HISTORY: Abdominal pain. Cholecystectomy yesterday. COMPARISON STUDY: CT of the abdomen and pelvis November 29, 2021. TECHNIQUE: Following IV administration of 93 mL of Optiray, axial images of the abdomen and pelvis were obtained from the lung bases to the proximal femurs. Images were reviewed in the axial, sagittal, and coronal planes. IV contrast was administered without complication. Automated exposure control was utilized for the study. A dose lowering technique was utilized adhering to the principles of ALARA. CT DOSE: 263.55 mGy.cm FINDINGS: Lung bases are unremarkable. Pneumoperitoneum is noted. There is also gas within the abdominal wall. This gas is postsurgical. There is no biliary ductal dilatation status post cholecystectomy. Periportal edema is noted. There are no hepatic lesions. There is no evidence for traumatic injury to the liver. Spleen, adrenal glands, kidneys and pancreas are unremarkable. There is no peripancreatic fluid. Note is made of a small amount of fluid within the cholecystectomy bed which measures above water attenuation. There is gas within the cholecystectomy bed as expected. Small to moderate amount of fluid within the pelvis is noted. This has minimal layering hyperdense material. This reflects blood products. No active extravasation is identified on this study. There is no evidence for a bowel obstruction. Corpus luteal cyst within the right ovary is noted. Major vasculature is patent. Tampon is in place. No acute fracture or suspicious lesion within the visualized skeletal structures is present. There is no hydronephrosis. IMPRESSION: 1. Pneumoperitoneum and gas within the abdominal wall which is postsurgical. Sma ll amount of fluid within the cholecystectomy bed which measures above water attenuation and small to moderate amount of fluid within the pelvis with minimal layering material. The findings suggest a small amount of hemorrhage. This is nonspecific in the early postoperative setting and could be correlated with follow-up H&H levels. No active extravasation. 2. No biliary ductal dilatation. Periportal edema which may be postsurgical or related to hydration. ACT 112: Negative or not required by law. Electronically signed by: Shane Garcia M.D. 01/29/2022 7:50 AM Abdomen Ultrasound 01/30/22 10:43 ABDOMINAL ULTRASOUND, RIGHT UPPER QUADRANT HISTORY: s/p lap gabo POD2, severe pain epigastrium. COMPARISON: CT of the abdomen and pelvis January 29, 2022. FINDINGS: This exam is mildly compromised by suboptimal penetration. There is no biliary ductal dilatation status post cholecystectomy. Echogenic shadowing material within the cholecystectomy bed may reflect gas as shown on CT. No well- defined cholecystectomy bed fluid collection is identified by sonography. No hepatic lesions are present. Pancreatic body is normal. Head and tail are slightly obscured. There is no right hydronephrosis. Trace right perinephric fluid. IMPRESSION: 1. No biliary ductal dilatation status post cholecystectomy. 2. Echogenic shadowing material within the cholecystectomy bed which may reflect gas, as shown on CT. Small amount of fluid within the cholecystectomy bed without well-defined fluid collection. ACT 112: Negative or not required by law. Electronically signed by: Shane Garcia M.D. 01/30/2022 1:14 PM Hepatobiliary Scan Nuclear Medicine 02/01/22 08:00 NUCLEAR HEPATOBILIARY SCAN CLINICAL HISTORY: Epigastric abdominal pain status post cholecystectomy. COMPARISON STUDY: Abdominal ultrasound dated 01/30/2022. Abdominal CT dated 01/29/2022. TECHNIQUE: Dynamic images of the liver and anterior abdomen were obtained every 5 minutes for a total of 35 minutes following the IV administration of 5.5 mCi of technetium 99m Mebrofenin. An additional upright images obtained at 45 minutes. FINDINGS: The hepatobiliary scan shows prompt and homogeneous hepatic uptake. There is visualized activity within the intra and extrahepatic biliary tree at 10 minutes and within the small bowel by 10 minutes. There is pooling of tracer in the gallbladder fossa, with extraluminal tracer tracking inferiorly along the right side of the abdomen. IMPRESSION: Findings are consistent with bile leak. ACT 112: Negative or not required by law. Electronically signed by: Kenyon Allen M.D. 02/01/2022 11:31 AM
[2022-02-02] MEDS: DOCUSATE SODIUM/SENNA 50/8.6MG TAB PO SCH (21:31)
[2022-02-02] MEDS ORDERED: FLUCONAZOLE 50 MG TAB PO ONE (22:05)
[2022-02-02] MEDS: diphenhydrAMINE Capsule 25 MG CAP PO PRN (22:47)
[2022-02-02 22:53] LABS: Appearance Urine Clear (Clear); Bacteria Urine Automated Negative (Negative); Bilirubin Urine Negative (Negative); Blood Urine Trace (Negative); Color Urine Yellow; Epithelial Cell Urine Auto >30 /lpf (0-5); Glucose Urine UA Negative (Negative); Ketones Urine Negative (Negative); Leukocyte Esterase Urine 2+ (Negative); Nitrite Urine Negative (Negative); Protein Urine Negative (Negative); RBC Urine Automated 0-4 /hpf (0-4); Specific Gravity Urine 1.015 (1.000-1.030); Urobilinogen Urine Positive (Negative)
--- NOTE | 2022-02-03 09:49 | Surgery Progress Note ---
Date of Service February 03, 2022 Assessment & Plan (1) S/P laparoscopic cholecystectomy: (2) Abdominal pain: Plan: POD # 6 lap gabo and POD # 2 s/p ERCP with biliary and pancreatic stents for bile leak - avss - RUQ pain improving - mild nausea with food intake, no vomiting Plan: Okay for discharge to home discharge instructions provided and reviewed f/u surgery office in 1-2 weeks will need stent removal in 6-[address] diane has seen patient and agrees with above. Admission and Anticipated Discharge Date Admission Date: February 02, 2022 Subjective feeling better today pain still present in right upper abdomen but slowly improving tolerating low fat diet, some pain and nausea with food but taking slowly no vomiting ambulating hallway urinating without difficulty Physical Exam Constitutional: WD/WN, vitals as above no acute distress and not ill appearing Neck: normal visual inspection and trachea midline Respiratory: normal respiratory effort; no respiratory distress Gastrointestinal (Abdomen): Inspection/Auscultation: abdomen normal to inspection and + abdominal surgical incision (covered with clean/dry dressings); abdomen not distended Percussion/Palpation: + abdomen tender (RUQ on deep palpation, improved compared to yesterday) and abdomen soft; no guarding and abdomen not rigid Skin: no rashes, warm and dry no jaundice Psychiatric: A+Ox3, euthymic affect Results & Data ([facility]) Vital Signs (Past 12 Hours) Vital Signs Temp Pulse Resp BP Pulse Ox 02/03/22 06:27 36.3 C L 64 14 108/71 98 02/02/22 23:07 36.8 C 73 18 94/61 L 96 (1) Abdominal pain Abdominal location: generalized Qualified Code(s): R10.84 - Generalized abdominal pain
[2022-02-03] MEDS: DOCUSATE SODIUM/SENNA 50/8.6MG TAB PO SCH (10:00)
--- NOTE | 2022-02-03 11:28 | Discharge Summary ---
Date of Service February 03, 2022 Admission HPI Per Admitting Provider 31-year-old woman status post laparoscopic cholecystectomy yesterday by Dr. Cartwright presents with severe pain in her abdomen. She did have nausea and vomited yesterday. She denies fevers or chills. In the emergency department, her pain has been controlled with IV pain medication. White blood cell count 14, liver function tests normal. Principal Diagnosis Postop pain s/p laparoscopic cholecystectomy Bile leak Discharge Data Allergies Allergy/AdvReac Type Severity Reaction Status Date / Time Penicillins Allergy Unknown . Verified 06/11/19 23:17 vancomycin Allergy Hives Verified 02/01/22 14:51 Consultations 01/31/22 11:30 Consult Gastroenterology Routine 02/02/22 19:39 Consult Hospitalist Routine Procedures Performed Operation Date: 02/01/22 12:40 Actual Procedures p Endoscopic Retrograde Cholangiopancreato - Davin García DO Ordered Studies 01/29/22 05:49 CT abd pelvis IV con only Stat 01/30/22 10:43 US abdomen limited Urgent 02/01/22 [place] ERCP biliary ductal Routine Hospital Course (1) S/P laparoscopic cholecystectomy: (2) Abdominal pain: (3) Bile leak: Patient was admitted to hospital for observation on Monday01/29/2022 due to postoperative pain. Her labs showed leukocytosis of 14k however t. bili and lfts wnl. She continued to have severe pain. She had a CT scan of abdomen and pelvis as well as abdominal ultrasound which showed fluid in the cholecystectomy bed which was nonspecific. She continued to have pain and t. bili elevated slightly to 1.1. HIDA scan was obtained on 02/01/2022 which showed a postop bile leak. GI was consulted and proceeded with ERCP and biliary and pancreatic stent placement. Patients diet was advanced post ERCP in which she tolerated. Pain continue to improve status post ERCP. Had mild nausea with food in take but no vomiting. Patient was discharged home in stable condition on 02/03/2022. Total Time Total Time Spent Total Time Spent (In Minutes): 30 minutes Total Time Includes: Examination of the Patient, Discharge Planning and Medication Reconciliation Discharge Plan Discharge Items Patient Disposition: Home - Self-Care Reason For Visit: S/P LAP RAJNI,POSTOP PAIN Discharge Diagnosis: S/p laparoscopic cholecystectomy Bile leak Activity: Per Instructions section Non-emergency contact: Surgeon and [employer] Call non-emergency contact if: you have any medication questions, your pain is concerning for you, your temperature is above 101, your wound has increased redness, your wound has increased drainage and your wound pain has increased Follow-up/Referrals: Elvira Ross PA-C [Primary Care Provider] - Diet: Low Fat Addtl Attending Provider Instructions: Post-Surgical ~Discharge Instructions Activity Recommendations: - lifting limitation: (20 pounds for 3 weeks), - exercise/sex/sports limit: (nonstrenuous for 2 weeks), - driving or machine use limit: (none for 1 week or until pain free and no longer taking narcotic pain medication), - Shower/bathe limit: (may shower, do not submerge incisions underwater for 10 days) Diet: - Resume a low fat diet SPECIAL CARE INSTRUCTIONS: - May shower.. Let water run over area and pat dry. - Can remove steri strips in 5 days. - Call the surgeon's office with any questions or concerns - - (ex. temperature higher than 101 degrees F, excessive bleeding or pain). MEDICATIONS: - Resume previous medications unless instructed otherwise by your surgeon. - Can take extra strength Tylenol as needed for mild to moderate pain -650 mg Tylenol every 6 hours as needed - AVOID NSAIDs (Ibuprofen, Aleve, Motrin) for 5 days due to the stent placement - Percocet 1 every 6 hours, as needed for moderate to severe pain - Recommend daily stool softener (Colace) while taking narcotic pain medication to prevent constipation or straining. FOLLOW UP VISIT: - If not already scheduled, please call the office to schedule a two week follow-up appointment. Office number You will need to have biliary stent removed in 6-8 weeks. GI should contact you to help get this scheduled. Please call Dr. Davin García's office if you do not hear about scheduling this. Pending Studies at Discharge: No Stand-Alone Forms: [facility], Work/School Release, Smoking Cessation Medications and DC Order Prescriptions: Continued Vitamin 27 mg iron- 800 mcg Tablet 800 tab PO DAILY RF: 0 promethazine 25 mg tablet 25 mg PO TID PRN (Reason: sedation) Qty: 20 RF: 0 Discharge Orders: Discharge Order (Routine); Ordered 02/03/22 Ordered By: Latonya Landon/Other Patient Handouts: Having Laparoscopic Cholecystectomy Admission Data Admit Date/Time: 02/02/22 09:23 Attending Provider: Kwame Lu Admit Provider: Kwame Lu Primary Care Provider: Elvira Ross Other Providers: Arthur Moran ; Latonya Buchanan ; Nel Martin ; Merly Day ; Yoel Jha ; Davin García ; Paige Escobedo ; Amor Banuelos ; Liss Rudolph ; Jeimy Magana ; Rowan Sylvester ; Ly Cabrales ; Jazmine Elder ; Quin Desai ; Fide Quinn I. ; Yamila Arriola ; Amrita Alvarado ; Rita Antonio ; Sonal Shaffer ; Yelena Mustafa ; Freddy Hawthorne ; Sukhi Schwab ; Jorge Coppola ; Violeta Chow ; Miah Mulligan ; Cait Perla ; Ruby Dias ; [place] ; Elvira Ross ; Qian Vargas ; London Mckinley ; Zoë Jose I. ; Atilio العلي ; Manny Chávez ; Ivette Carmona ; Gayathri Fernandez ; Marino Camacho ; Phil Dill Other Interventions: Discharge Summary Assessment (RN) Last Done: 02/03/22 10:57
--- NOTE | 2022-02-08 10:36 | Coding Query ---
CODING QUERY To promote full compliance with coding requirements relating to patient care, provider participation is requested in all cases of education technician uncertainty. Please assist us with the question(s) below: Coding Question(s): Please specify below, in your clinical opinion, regarding the Bile Leak, documented as Post cholecystectomy bile leak on the 02/02 Hospitalist Consultation. (X) Bile Leak is likely a complication of the recent Cholecystectomy procedure ( ) Bile Leak is Not a complication of the recent Cholecystectomy procedure ( ) Bile Leak is Other: Please Specify Physician's Response(s): Thank you Lakia Suarez Principal Diagnosis: "that condition established after study, to be chiefly responsible for occasioning the admission of the patient to the hospital for care." Co-Existing Principal Diagnosis: "when two or more diagnoses equally meet the criteria for principal diagnosis as determined by the circumstances of admission, diagnostic work up, and/or therapy provided, and the Alphabetic Index, Tabular List, or another coding guideline does not provide sequencing direction, any one of the diagnoses may be sequenced first." "When the physician has documented what appears to be a current diagnosis in the body of the record, but has not included the diagnosis in the final diagnostic statement, the physician should be asked whether the diagnosis should be added." (Source Coding [facility] 2 QTR90. p3-4) SILVIO
== END 2022-02-03 11:25 | disposition home or self-care (01) | DRG 395 ==
LOC: 3E 05:33 → ED 05:33 → 3E 11:30